=== PATIENT | female | born 1985 | race Hispanic/Latino ===

== ENCOUNTER 2019-12-18 19:23 | Emergency (ER) | payer BC, SELFPAY ==
[2019-12-18] MEDS ORDERED: LABETALOL 20 MG/4ML SYRINGE IV ONE (21:21)
[2019-12-18] MEDS ORDERED: NA CHLORIDE 0.9% 1,000 ML ONE (21:21)
[2019-12-18 21:23] LABS: Absolute Lymphocytes (CBC) 2.2 K/uL (0.7-4.9); Basophils % 0.4 % (0-1.3); Hematocrit 37.2 % (36.0-45.0); Lymphocytes % 37.1 % (15.3-44.8); MPV 7.5 fL (7.6-11.3); RBC Red Blood Cell Count 4.41 M/uL (3.86-4.86)
[2019-12-18 21:38] LABS: BUN Blood Urea Nitrogen 9 mg/dL (7-18); Bicarbonate 26 mmol/L (21-32); Glucose Level 88 mg/dL (74-106); Potassium 4.1 mmol/L (3.5-5.1); Sodium Level 139 mmol/L (136-145)
--- NOTE | 2019-12-18 22:17 | ER ---
Nurse's Notes [facility] Name: Jeanine Kamara Age: 34 yrs Sex: Female : 1985 Arrival Date: 12/18/2019 Time: 19:26 Bed 13 Private MD: Diagnosis: Uncontrolled hypertension Presentation: 12/17 19:37 Chief complaint: Patient states: High blood pressure for 3 days. Spironolactone taking ll1 as prescribed, clonidine helps for 1 hour, then BP goes back up. Reports AUGUSTE, no appetite, not feeling well, frequent thirst/urination when BP is high. BP 164/120 at home. Has BP log with her. Coronavirus screen: Patient denies a cough. Patient denies shortness of breath or difficulty breathing. Patient denies measured and/or subjective temperature greater than 100.4F prior to today's visit. Patient denies travel on a cruise ship or to a country the [facility] currently lists as an affected area. Patient denies contact with known and/or suspected case of COVID-19. Proceed with normal triage. Ebola Screen: Patient denies travel to an Ebola-affected area in the 21 days before illness onset. Initial Sepsis Screen: Does the patient meet any 2 criteria? No. Patient's initial sepsis screen is negative. Risk Assessment: Do you want to hurt yourself or someone else? Patient reports no desire to harm self or others. Onset of symptoms was December 16, 2019. 19:37 Method Of Arrival: Ambulatory ll1 19:37 Acuity: SUNG 3 ll1 22:52 Initial Sepsis Screen: Does the patient have a suspected source of infection? No. ks7 Patient's initial sepsis screen is negative. Triage Assessment: 20:45 General: Appears in no apparent distress. Behavior is cooperative, anxious. Pain: ks7 Denies pain. 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 - Social history:: Smoking status: Patient denies any tobacco usage or history of. Patient/guardian denies using alcohol, street drugs, tobacco products. Screenin:46 Abuse screen: Denies threats or abuse. Nutritional screening: No deficits noted. ks7 Tuberculosis screening: No symptoms or risk factors identified. Fall Risk None identified. Assessment: 20:46 General: Appears in no apparent distress. Cardiovascular: Reports lightheadedness, pt ks7 with hx of HTN x 2 years unable to control BP over last few days. pt diastolic > 100, c/o dizziness, AUGUSTE with BP. Vital Signs: 19:37 BP 146 / 104; Pulse 65; Resp 17; Temp 98.4; Pulse Ox 100% ; Pain 4/10; ll1 20:45 BP 151 / 102; Pulse 72; Resp 14; Temp 98.4(O); Pulse Ox 100% ; Pain 0/10; ks7 21:36 BP 150 / 96; Pulse 67; Resp 16; Temp 98.6(O); Pulse Ox 100% ; Pain 4/10; ks7 22:05 BP 146 / 95; Pulse 69; Resp 16; Pulse Ox 100% ; Pain 4/10; ks7 22:43 BP 146 / 95; Pulse 66; Resp 16; Temp 98.6(O); Pulse Ox 100% ; Pain 0/10; ks7 22:53 BP 143 / 95; Pain 0/10; ks7 ED Course: 19:26 Patient arrived in ED. cf2 19:40 Triage completed. ll1 19:42 Arm band placed on. ll1 20:37 Mica Villegas, WON is Primary Nurse. ks7 20:40 Richie Ortiz MD is Attending Physician. pkl 20:46 Patient has correct armband on for positive identification. Placed in gown. Bed in low ks7 position. Call light in reach. Side rails up X2. 20:46 No provider procedures requiring assistance completed. ks7 21:15 Initial lab(s) drawn, by me, sent to lab. Inserted saline lock: 20 gauge in right sg antecubital area, using aseptic technique. Blood collected. 21:24 Chem 7 Sent. ks7 22:50 IV discontinued, intact, bleeding controlled, No redness/swelling at site. Pressure ks7 dressing applied. Administered Medications: Discontinued: NS 0.9% 1000 ml IV at 125 ml/hr continuous 21:20 Drug: NS 0.9% 1000 ml Route: IV; Rate: 125 ml/hr; Site: right antecubital; ks7 21:20 Drug: Labetalol 20 mg Route: IVP; Infused Over: 2 mins; Site: right antecubital; ks7 22:53 Follow up: BP 143 / 95; Pain 0/10 Adult ks7 Outcome: 22:16 Discharge ordered by . jackson 22:50 Discharged to home ambulatory. ks7 22:50 Condition: stable 22:50 Discharge instructions given to patient, Instructed on discharge instructions, medication usage, Demonstrated understanding of instructions, medications, Prescriptions given X 1. 22:53 Patient left the ED. ks7 Signatures: Eugenio Huff RN WON sg Richie Ortiz MD MD pkl Frazier, Celesta cf2 Emily Razo RN RN ll1 Mica Villegas RN RN ks7
--- NOTE | 2019-12-18 22:17 | EDPHYS ---
Physician Documentation [facility] Name: Jeanine Kamara Age: 34 yrs Sex: Female : 1985 Arrival Date: 12/18/2019 Time: 19:26 Bed 13 Private MD: ED Physician Richie Ortiz HPI: 12/17 21:05 This 34 yrs old Female presents to ER via Ambulatory with complaints of High pkl Blood Pressure. 21:05 Onset: The symptoms/episode began/occurred 3 day(s) ago. Associated signs and symptoms: pkl Pertinent positives: headache, frequent thirst and urination. 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 - Social history:: Smoking status: Patient denies any tobacco usage or history of. Patient/guardian denies using alcohol, street drugs, tobacco products. ROS: 21:05 Eyes: Negative for injury, pain, redness, and discharge, ENT: Negative for injury, pkl pain, and discharge, Neck: Negative for injury, pain, and swelling, Cardiovascular: Negative for chest pain, palpitations, and edema, Respiratory: Negative for shortness of breath, cough, wheezing, and pleuritic chest pain, Abdomen/GI: Negative for abdominal pain, nausea, vomiting, diarrhea, and constipation, Back: Negative for injury and pain, : Negative for injury, bleeding, discharge, and swelling, MS/Extremity: Negative for injury and deformity, Skin: Negative for injury, rash, and discoloration. 21:05 Neuro: Positive for headache. Exam: 21:05 Head/Face: Normocephalic, atraumatic. Eyes: Pupils equal round and reactive to light, pkl extra-ocular motions intact. Lids and lashes normal. Conjunctiva and sclera are non-icteric and not injected. Cornea within normal limits. Periorbital areas with no swelling, redness, or edema. ENT: Nares patent. No nasal discharge, no septal abnormalities noted. Tympanic membranes are normal and external auditory canals are clear. Oropharynx with no redness, swelling, or masses, exudates, or evidence of obstruction, uvula midline. Mucous membranes moist. Neck: Trachea midline, no thyromegaly or masses palpated, and no cervical lymphadenopathy. Supple, full range of motion without nuchal rigidity, or vertebral point tenderness. No Meningismus. Chest/axilla: Normal chest wall appearance and motion. Nontender with no deformity. No lesions are appreciated. Cardiovascular: Regular rate and rhythm with a normal S1 and S2. No gallops, murmurs, or rubs. Normal PMI, no JVD. No pulse deficits. Respiratory: Lungs have equal breath sounds bilaterally, clear to auscultation and percussion. No rales, rhonchi or wheezes noted. No increased work of breathing, no retractions or nasal flaring. Abdomen/GI: Soft, non-tender, with normal bowel sounds. No distension or tympany. No guarding or rebound. No evidence of tenderness throughout. Back: No spinal tenderness. No costovertebral tenderness. Full range of motion. Skin: Warm, dry with normal turgor. Normal color with no rashes, no lesions, and no evidence of cellulitis. MS/ Extremity: Pulses equal, no cyanosis. Neurovascular intact. Full, normal range of motion. Neuro: Awake and alert, GCS 15, oriented to person, place, time, and situation. Cranial nerves II-XII grossly intact. Motor strength 5/5 in all extremities. Sensory grossly intact. Cerebellar exam normal. Normal gait. Vital Signs: 19:37 BP 146 / 104; Pulse 65; Resp 17; Temp 98.4; Pulse Ox 100% ; Pain 4/10; ll1 20:45 BP 151 / 102; Pulse 72; Resp 14; Temp 98.4(O); Pulse Ox 100% ; Pain 0/10; ks7 21:36 BP 150 / 96; Pulse 67; Resp 16; Temp 98.6(O); Pulse Ox 100% ; Pain 4/10; ks7 22:05 BP 146 / 95; Pulse 69; Resp 16; Pulse Ox 100% ; Pain 4/10; ks7 22:43 BP 146 / 95; Pulse 66; Resp 16; Temp 98.6(O); Pulse Ox 100% ; Pain 0/10; ks7 22:53 BP 143 / 95; Pain 0/10; ks7 MDM: 20:40 Patient medically screened. pkl 22:15 Data reviewed: vital signs, nurses notes, lab test result(s). pkl 12/17 20:50 Order name: CBC with Diff; Complete Time: 22:13 pkl 12/17 20:50 Order name: Chem 7; Complete Time: 22:13 pkl Administered Medications: Discontinued: NS 0.9% 1000 ml IV at 125 ml/hr continuous 21:20 Drug: NS 0.9% 1000 ml Route: IV; Rate: 125 ml/hr; Site: right antecubital; ks7 21:20 Drug: Labetalol 20 mg Route: IVP; Infused Over: 2 mins; Site: right antecubital; ks7 22:53 Follow up: BP 143 / 95; Pain 0/10 Adult ks7 Disposition: 12/18/19 22:16 Discharged to Home. Impression: Uncontrolled hypertension. - Condition is Stable. - Prescriptions for Carvedilol 12.5 mg Oral Tablet - take 1 tablet by ORAL route 2 times per day with food; 60 tablet. - Medication Reconciliation Form, Thank You Letter, Antibiotic Education, Prescription Opioid Use form. - Follow up: Private Physician; When: 2 - 3 days; Reason: Re-evaluation by your physician. - Problem is new. - Symptoms have improved. Signatures: Dispatcher [employer] EDRichie Mcduffie MD MD pkEmily Zuñiga RN RN ll1 Mica Villegas RN RN ks7 Corrections: (The following items were deleted from the chart) 22:53 22:16 12/18/2019 22:16 Discharged to Home. Impression: Uncontrolled hypertension. ks7 Condition is Stable. Forms are Medication Reconciliation Form, Thank You Letter, Antibiotic Education, Prescription Opioid Use. Follow up: Private Physician; When: 2 - 3 days; Reason: Re-evaluation by your physician. Problem is new. Symptoms have improved. pkl
[2019-12-18 23:13] VITALS: O2SAT 100
[2019-12-18 23:16] VITALS: TEMP 98.6
[2019-12-18 23:20] VITALS: BP 143/95
== END 2019-12-18 22:53 | disposition home or self-care (01) ==
LOC: ER 19:23
DX: I10 Essential (primary) hypertension (principal)
CPT/HCPCS: 36415; 80048; 85025; 96374; 99284; J7030

== ENCOUNTER 2019-12-19 22:58 | Emergency (ER) | payer SELFPAY ==
--- NOTE | 2019-12-20 00:25 | ER ---
Nurse's Notes [facility] Name: Jeanine Kamara Age: 34 yrs Sex: Female : 1985 Arrival Date: 12/19/2019 Time: 23:00 Bed Waiting Private MD: Diagnosis: Presentation: 12/18 23:05 Chief complaint: Patient states: BP has still been elevated since visit here yesterday. ll1 Also went to [place] ER last night. Blood work negative. Coronavirus screen: Patient denies a cough. Patient denies shortness of breath or difficulty breathing. Patient denies measured and/or subjective temperature greater than 100.4F prior to today's visit. Patient denies travel on a cruise ship or to a country the [facility] currently lists as an affected area. Patient denies contact with known and/or suspected case of COVID-19. Proceed with normal triage. Ebola Screen: Patient denies travel to an Ebola-affected area in the 21 days before illness onset. Initial Sepsis Screen: Does the patient meet any 2 criteria? No. Patient's initial sepsis screen is negative. Risk Assessment: Do you want to hurt yourself or someone else? Patient reports no desire to harm self or others. Onset of symptoms was December 15, 2019. 23:05 Method Of Arrival: Ambulatory ll1 23:05 Acuity: SUNG 3 ll1 Historical: - Allergies: 23:07 No Known Drug Allergies; ll1 - PMHx: 23:07 high cholesterol in the past; Hypertension; GERD; Diverticulitis; ll1 - PSHx: 23:07 None; ll1 - Immunization history:: Adult Immunizations up to date. - Social history:: Smoking status: Patient denies any tobacco usage or history of. Patient/guardian denies using alcohol, street drugs, tobacco products. Vital Signs: 23:05 BP 156 / 109; Pulse 64; Resp 17; Temp 99.2; Pulse Ox 100% ; Pain 5/10; ll1 ED Course: 23:00 Patient arrived in ED. do 23:07 Triage completed. ll1 23:08 Arm band placed on Patient notified of wait time. ll1 12/19 00:00 Patient's name was called from ER lobby. No response. sg 00:15 Patient's name was called from ER lobby. No response. sg 00:23 Patient's name was called from ER pamela. No response. sg Administered Medications: No medications were administered Outcome: 00:24 Patient left the ED. sg Signatures: Eugenio Huff RN RN Alyse Gonzales Lynsay RN RN ll1
[2019-12-20 00:44] VITALS: BP 156/109; TEMP 99.2; O2SAT 100
== END 2019-12-20 00:24 | disposition left against medical advice (07) ==
LOC: ER 22:58
DX: Z53.21 Procedure and treatment not carried out due to patient leaving prior to being seen by health care provider (principal)
CPT/HCPCS: 99281

== ENCOUNTER 2019-12-20 23:13 | Emergency (ER) | payer SELFPAY ==
[2019-12-20] MEDS ORDERED: ACETAMINOPHEN 500 MG TAB ONE (23:59)
[2019-12-21 00:09] LABS: Absolute Lymphocytes (CBC) 2.4 K/uL (0.7-4.9); Basophils % 0.6 % (0-1.3); Hematocrit 38.4 % (36.0-45.0); Lymphocytes % 33.5 % (15.3-44.8); MPV 8.3 fL (7.6-11.3); RBC Red Blood Cell Count 4.49 M/uL (3.86-4.86)
[2019-12-21 00:21] LABS: ALT/SGPT 17 U/L (12-78); AST/SGOT 14 U/L (15-37); Albumin 3.7 g/dL (3.4-5.0); Alkaline Phosphatase 61 U/L (45-117); BUN Blood Urea Nitrogen 7 mg/dL (7-18); Bicarbonate 23 mmol/L (21-32); Bilirubin Direct < 0.1 mg/dL (0-0.2); Bilirubin Total 0.3 mg/dL (0.2-1.0); Creatine Phosphokinase 56 U/L (26-192); Glucose Level 92 mg/dL (74-106); Magnesium 2.1 mg/dL (1.8-2.4); NT PRO-BNP 73 pg/mL (<125); Potassium 4.1 mmol/L (3.5-5.1); Protein, Total 7.9 g/dL (6.4-8.2); Sodium Level 138 mmol/L (136-145); Troponin (Emerg Dept Use Only) < 0.02 ng/mL (0.0-0.045)
[2019-12-21 01:25] LABS: METHAMPHETAM NEGATIVE (NEGATIVE)
[2019-12-21 01:26] LABS: Barbiturates NEGATIVE (NEGATIVE); Benzodiazepines NEGATIVE (NEGATIVE); Cocaine NEGATIVE (NEGATIVE); Methadone NEGATIVE (NEGATIVE); Opiates NEGATIVE (NEGATIVE); Phencyclidine NEGATIVE (NEGATIVE)
[2019-12-21 01:27] LABS: THC Cannibis NEGATIVE (NEGATIVE)
[2019-12-21] MEDS ORDERED: NA CHLORIDE 0.9% 1,000 ML ONE (01:28)
[2019-12-21] MEDS ORDERED: DIPHENHYDRAMINE 50 MG/ML VIAL ONE (01:28)
[2019-12-21] MEDS ORDERED: METOCLOPRAMIDE 10 MG/2mL INJ ONE (01:28)
[2019-12-21 02:17] LABS: Urine Blood 3+ (NEG); Urine Glucose NEGATIVE (NEG); Urine Protein NEGATIVE (NEG); Urine Specific Gravity 1.025 (1.005-1.030)
[2019-12-21 03:41] LABS: Protime INR 1.07
--- NOTE | 2019-12-21 03:48 | EDPHYS ---
Physician Documentation [facility] Name: Jeanine Kamara Age: 34 yrs Sex: Female : 1985 Arrival Date: 12/20/2019 Time: 23:18 Bed 7 Private MD: ED Physician Sergey Hardy HPI: 12/19 23:55 This 34 yrs old Female presents to ER via EMS with complaints of Hypertension..mh7 23:56 The patient has elevated blood pressure and discovered this at home, with a home mh7 device. Onset: The symptoms/episode began/occurred 3 day(s) ago. Modifying factors: The symptoms are aggravated by nothing, The symptoms are alleviated by nothing. Associated signs and symptoms: Pertinent positives: chest pain, headache, Pertinent negatives: dizziness, dyspnea, lightheadedness, nausea, visual changes, vomiting, weakness. Severity of symptoms: At its worst the blood pressure was moderate, earlier today, 200 mm Hg, in the emergency department the blood pressure is improved, moderately, 160 mm Hg. The patient has been recently seen at the [facility], this week. 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 - Social history:: Smoking status: Patient denies any tobacco usage or history of. ROS: 23:56 Constitutional: Negative for fever, chills, and weight loss, Eyes: Negative for injury, mh7 pain, redness, and discharge, ENT: Negative for injury, pain, and discharge, Neck: Negative for injury, pain, and swelling, Respiratory: Negative for shortness of breath, cough, wheezing, and pleuritic chest pain, Abdomen/GI: Negative for abdominal pain, nausea, vomiting, diarrhea, and constipation, Back: Negative for injury and pain, : Negative for injury, bleeding, discharge, and swelling, MS/Extremity: Negative for injury and deformity, Skin: Negative for injury, rash, and discoloration, Psych: Negative for depression, anxiety, suicide ideation, homicidal ideation, and hallucinations, Allergy/Immunology: Negative for hives, rash, and allergies, Endocrine: Negative for neck swelling, polydipsia, polyuria, polyphagia, and marked weight changes, Hematologic/Lymphatic: Negative for swollen nodes, abnormal bleeding, and unusual bruising. Exam: 23:56 Constitutional: This is a well developed, well nourished patient who is awake, alert, mh7 and in no acute distress. Head/Face: Normocephalic, atraumatic. Eyes: Pupils equal round and reactive to light, extra-ocular motions intact. Lids and lashes normal. Conjunctiva and sclera are non-icteric and not injected. Cornea within normal limits. Periorbital areas with no swelling, redness, or edema. ENT: Nares patent. No nasal discharge, no septal abnormalities noted. Tympanic membranes are normal and external auditory canals are clear. Oropharynx with no redness, swelling, or masses, exudates, or evidence of obstruction, uvula midline. Mucous membranes moist. Neck: Trachea midline, no thyromegaly or masses palpated, and no cervical lymphadenopathy. Supple, full range of motion without nuchal rigidity, or vertebral point tenderness. No Meningismus. Chest/axilla: Normal chest wall appearance and motion. Nontender with no deformity. No lesions are appreciated. Cardiovascular: Regular rate and rhythm with a normal S1 and S2. No gallops, murmurs, or rubs. Normal PMI, no JVD. No pulse deficits. Respiratory: Lungs have equal breath sounds bilaterally, clear to auscultation and percussion. No rales, rhonchi or wheezes noted. No increased work of breathing, no retractions or nasal flaring. Abdomen/GI: Soft, non-tender, with normal bowel sounds. No distension or tympany. No guarding or rebound. No evidence of tenderness throughout. Back: No spinal tenderness. No costovertebral tenderness. Full range of motion. Skin: Warm, dry with normal turgor. Normal color with no rashes, no lesions, and no evidence of cellulitis. MS/ Extremity: Pulses equal, no cyanosis. Neurovascular intact. Full, normal range of motion. Neuro: Awake and alert, GCS 15, oriented to person, place, time, and situation. Cranial nerves II-XII grossly intact. Motor strength 5/5 in all extremities. Sensory grossly intact. Cerebellar exam normal. Normal gait. Psych: Awake, alert, with orientation to person, place and time. Behavior, mood, and affect are within normal limits. 23:56 Constitutional: The patient appears 12/20 00:12 ECG was reviewed by the Attending Physician. [facility] Vital Signs: 12/19 23:18 BP 169 / 117; Pulse 70; Resp 17; Temp 98.5; Pulse Ox 99% on R/A; Weight 60.33 kg; rv Height 5 ft. 3 in. (160.02 cm); Pain 10; 12/20 00:30 BP 154 / 101; Pulse 57; Resp 18; Pulse Ox 100% on R/A; wh 01:45 BP 148 / 95; Pulse 65; Resp 18; Pulse Ox 100% on R/A; wh 02:28 BP 140 / 94; Pulse 64; Resp 17; Pulse Ox 100% on R/A; rv 03:00 BP 125 / 85; Pulse 63; Resp 16; Pulse Ox 100% on R/A; rv 12/19 23:18 Body Mass Index 23.56 (60.33 kg, 160.02 cm) rv MDM: 12/19 23:43 Patient medically screened. [facility] 12/20 03:44 Differential diagnosis: hypertensive crisis, Malignant HTN, intracerebral hemorrhage. [facility] Differential diagnosis: Anxiety, Headache, Substance Abuse, Dehydration. Data reviewed: vital signs, nurses notes, EMS record, old medical records, lab test result(s), cardiac enzymes, CBC, electrolytes, urinalysis, urine drug screen, UPT: EKG, radiologic studies, CT scan, plain films. Data interpreted: youth nutritional monitor: rate is 63 beats/min, rhythm is normal sinus rhythm, regular, Interpretation: normal rate, normal rhythm, Pulse oximetry: on room air is 100 %. Interpretation: normal. Counseling: I had a detailed discussion with the patient and/or guardian regarding: the historical points, exam findings, and any diagnostic results supporting the discharge/admit diagnosis, the presence of at least one elevated blood pressure reading (>120/80) during this emergency department visit, lab results, radiology results, the need for outpatient follow up, to return to the emergency department if symptoms worsen or persist or if there are any questions or concerns that arise at home. Response to treatment: the patient's symptoms have resolved after treatment, the patient's blood pressure is in an acceptable range, mental status has returned to baseline, the patient no longer shows bradycardia, the patient is not short of breath, the patient is not tachycardic, the patient's pain is gone, the patient's temperature has normalized. 12/19 23:44 Order name: Basic Metabolic Panel; Complete Time: 00:40 [facility] 12/19 23:44 Order name: CBC with Diff; Complete Time: 00:40 [facility] 12/19 23:44 Order name: LFT's; Complete Time: 00:40 [facility] 12/19 23:44 Order name: Magnesium; Complete Time: 00:40 [facility] 12/19 23:44 Order name: NT PRO-BNP; Complete Time: 00:40 [facility] 12/19 23:44 Order name: PT-INR [facility] 12/19 23:44 Order name: Troponin (emerg Dept Use Only); Complete Time: 00:40 [facility] 12/19 23:44 Order name: UDS; Complete Time: 03:06 [facility] 12/19 23:44 Order name: CPK; Complete Time: 00:40 [facility] 12/20 00:16 Order name: Urine Dipstick--Ancillary (enter results); Complete Time: 03:06 [facility] 12/20 00:16 Order name: Urine --Ancillary (enter results); Complete Time: 03:06 [facility] 12/20 02:20 Order name: Troponin (emerg Dept Use Only); Complete Time: 03:42 12/20 02:47 Order name: D-Dimer [facility] 12/19 23:44 Order name: XRAY Chest (1 view) [facility] 12/19 23:44 Order name: Cardiac monitoring; Complete Time: 23:58 [facility] 12/19 23:44 Order name: EKG - Nurse/Tech; Complete Time: 23:55 [facility] 12/19 23:44 Order name: IV Saline Lock; Complete Time: 23:58 [facility] 12/19 23:44 Order name: Labs collected and sent; Complete Time: 23:55 [facility] 12/19 23:44 Order name: O2 Per Protocol; Complete Time: 23:58 [facility] 12/19 23:44 Order name: O2 Sat Monitoring; Complete Time: 23:58 [facility] 12/19 23:44 Order name: Urine Dipstick-Ancillary (obtain specimen); Complete Time: 00:11 [facility] 12/19 23:44 Order name: Urine Test (obtain specimen); Complete Time: 00:10 [facility] 12/19 23:46 Order name: CT Head Brain wo Cont 7 EC:12 Rate is 65 beats/min. Rhythm is regular, Normal Sinus Rhythm. QRS [place] is Normal. [place] mh7 interval is normal. QRS interval is normal. QT interval is normal. No Q waves. T waves are Normal. No ST changes noted. Clinical impression: Normal ECG. Administered Medications: 12/19 23:58 Drug: Tylenol 1000 mg Route: PO; 12/20 03:45 Follow up: Response: No adverse reaction rv 01:25 Drug: Benadryl 50 mg Route: IVP; Site: left antecubital; rv 03:45 Follow up: Response: No adverse reaction; Marked relief of symptoms; Pain is decreased rv 01:26 Drug: NS 0.9% 1000 ml Route: IV; Rate: 1 bolus; Site: left antecubital; rv 03:45 Follow up: IV Status: Completed infusion; IV Intake: 1000ml rv 01:26 Drug: Reglan 10 mg Route: IVP; Site: left antecubital; rv 03:45 Follow up: Response: No adverse reaction; Marked relief of symptoms; Pain is decreased rv Disposition: 12/21/19 03:48 Discharged to Home. Impression: Hypertension, Headache, Anxiety. - Condition is Stable. - Discharge Instructions: Hypertension, Jzir-[id number], General Headache Without Cause, [id number], Generalized Anxiety Disorder. - Prescriptions for Hydroxyzine HCl 25 mg Oral Tablet - take 1 tablet by ORAL route every 6 hours As needed; 12 tablet. - Medication Reconciliation Form, Thank You Letter, Antibiotic Education, Prescription Opioid Use form. - Follow up: Private Physician; When: 1 - 2 days; Reason: Worsening of condition, Recheck today's complaints, Continuance of care, Re-evaluation by your physician. - Problem is an ongoing problem. - Symptoms have improved. Signatures: Dispatcher [employer] Abhilash Vinson Jimmy Bishop RN RN Sergey Maya MD MD mh7 Corrections: (The following items were deleted from the chart) 02:46 12/19 23:50 D-[id number] [facility]. [facility] 03:48 03:48 12/21/2019 03:48 Discharged to Home. Impression: Hypertension; Headache. mh7 Condition is Stable. Forms are Medication Reconciliation Form, Thank You Letter, Antibiotic Education, Prescription Opioid Use. Follow up: Private Physician; When: 1 - 2 days; Reason: Worsening of condition, Recheck today's complaints, Continuance of care, Re-evaluation by your physician. Problem is an ongoing problem. Symptoms have improved. mh7 04:01 03:48 12/21/2019 03:48 Discharged to Home. Impression: Hypertension; Headache; Anxiety. rv Condition is Stable. Forms are Medication Reconciliation Form, Thank You Letter, Antibiotic Education, Prescription Opioid Use. Follow up: Private Physician; When: 1 - 2 days; Reason: Worsening of condition, Recheck today's complaints, Continuance of care, Re-evaluation by your physician. Problem is an ongoing problem. Symptoms have improved. mh7
--- NOTE | 2019-12-21 03:48 | ER ---
Nurse's Notes [facility] Name: Jeanine Kamara Age: 34 yrs Sex: Female : 1985 Arrival Date: 12/20/2019 Time: 23:18 Bed 7 Private MD: Diagnosis: Hypertension;Headache;Anxiety Presentation: 12/19 23:18 Chief complaint: Patient states: WITH HISTORY OF HYPERTENSION. PT WAS TREATED LAST WEEK rv FOR THE SAME PROBLEM. TAKES CARVITALOL, SPIRONOLACTONE, CLONIDINE. ALSO COMPLAINS OF CHEST PAIN, DESCRIBED PRESSURE. Coronavirus screen: Patient denies a cough. Patient denies shortness of breath or difficulty breathing. Patient denies measured and/or subjective temperature greater than 100.4F prior to today's visit. Patient denies travel on a cruise ship or to a country the [facility] currently lists as an affected area. Patient denies contact with known and/or suspected case of COVID-19. Proceed with normal triage. Ebola Screen: No symptoms or risks identified at this time. Initial Sepsis Screen: Does the patient meet any 2 criteria? No. Patient's initial sepsis screen is negative. Does the patient have a suspected source of infection? No. Patient's initial sepsis screen is negative. Risk Assessment: Do you want to hurt yourself or someone else? Patient reports no desire to harm self or others. Onset of symptoms was December 20, 2019 at 21:00. 23:18 Method Of Arrival: EMS: [facility] rv 23:18 Acuity: SUNG 3 rv Triage Assessment: 23:29 General: Appears uncomfortable, Behavior is calm, cooperative. Pain: Complains of pain rv in chest Pain radiates to left arm Pain currently is 3 out of 10 on a pain scale. Quality of pain is described as pressure, Pain began suddenly. Pain: Complains of pain in HEAD Pain currently is 6 out of 10 on a pain scale. EENT: No signs and/or symptoms were reported regarding the EENT system. Neuro: Level of Consciousness is awake, alert, obeys commands, Oriented to person, place, time, situation, Reports headache. Cardiovascular: Reports chest pain, Patient's skin is warm and dry. Rhythm is sinus rhythm. Respiratory: Airway is patent Respiratory effort is even, unlabored, Breath sounds are clear bilaterally. Derm: Skin is intact. 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 - Social history:: Smoking status: Patient denies any tobacco usage or history of. Screenin:31 Abuse screen: Denies threats or abuse. Denies injuries from another. Nutritional rv screening: No deficits noted. Tuberculosis screening: No symptoms or risk factors identified. Fall Risk None identified. Assessment: 12/20 00:00 General: Appears in no apparent distress. Behavior is calm, cooperative, appropriate wh for age. Pain: Complains of pain in chest Pain does not radiate. Is intermittent. Neuro: Level of Consciousness is awake, alert, obeys commands, Oriented to person, place, time, situation, Appropriate for age Reports headache. Cardiovascular: Heart tones S1 S2 Rhythm is regular. Respiratory: Airway is patent Respiratory effort is even, unlabored, Respiratory pattern is regular, symmetrical, Breath sounds are clear bilaterally. GI: Abdomen is flat, non-distended. : No signs and/or symptoms were reported regarding the genitourinary system. EENT: No signs and/or symptoms were reported regarding the EENT system. Derm: Skin is intact, is healthy with good turgor, Skin is pink, warm \T\ dry. normal. Musculoskeletal: Circulation, motion, and sensation intact. 01:30 Reassessment: Patient appears in no apparent distress at this time. No changes from previously documented assessment. Patient and/or family updated on plan of care and expected duration. Pain level reassessed. Patient is alert, oriented x 3, equal unlabored respirations, skin warm/dry/pink. 02:29 Reassessment: Patient states feeling better. Patient states symptoms have improved. rv General: Behavior is calm, cooperative. Neuro: Level of Consciousness is awake, alert, obeys commands, Oriented to person, place, time, situation. Vital Signs: 12/19 23:18 BP 169 / 117; Pulse 70; Resp 17; Temp 98.5; Pulse Ox 99% on R/A; Weight 60.33 kg; rv Height 5 ft. 3 in. (160.02 cm); Pain 3/10; 12/20 00:30 BP 154 / 101; Pulse 57; Resp 18; Pulse Ox 100% on R/A; wh 01:45 BP 148 / 95; Pulse 65; Resp 18; Pulse Ox 100% on R/A; wh 02:28 BP 140 / 94; Pulse 64; Resp 17; Pulse Ox 100% on R/A; rv 03:00 BP 125 / 85; Pulse 63; Resp 16; Pulse Ox 100% on R/A; rv 12/19 23:18 Body Mass Index 23.56 (60.33 kg, 160.02 cm) rv ED Course: 12/19 23:18 Patient arrived in ED. rv 23:21 Sergey Hardy MD is Attending Physician. [facility] 23:28 Triage completed. rv 23:30 Arm band placed on Patient placed in the treatment room, on a stretcher, Patient rv notified of wait time. 23:30 No provider procedures requiring assistance completed. Maintain EMS IV. Dressing rv intact. Good blood return noted. Site clean \T\ dry. Gauge \T\ site: G 18 LEFT AC. 23:31 Patient has correct armband on for positive identification. Placed in gown. Bed in low rv position. Call light in reach. Side rails up X 1. satellite project site monitor on. Pulse ox on. NIBP on. 23:36 Initial lab(s) drawn, by me, sent to lab. tt3 23:43 Abhilash Oneill is Primary Nurse. 12/20 00:19 XRAY Chest (1 view) In Process Unspecified. EDMS 00:21 CT Head Brain wo Cont In Process Unspecified. EDMS 03:46 IV discontinued, intact, bleeding controlled, No redness/swelling at site. Pressure rv dressing applied. Administered Medications: 12/19 23:58 Drug: Tylenol 1000 mg Route: PO; 12/20 03:45 Follow up: Response: No adverse reaction rv 01:25 Drug: Benadryl 50 mg Route: IVP; Site: left antecubital; rv 03:45 Follow up: Response: No adverse reaction; Marked relief of symptoms; Pain is decreased rv 01:26 Drug: NS 0.9% 1000 ml Route: IV; Rate: 1 bolus; Site: left antecubital; rv 03:45 Follow up: IV Status: Completed infusion; IV Intake: 1000ml rv 01:26 Drug: Reglan 10 mg Route: IVP; Site: left antecubital; rv 03:45 Follow up: Response: No adverse reaction; Marked relief of symptoms; Pain is decreased rv Intake: 03:45 IV: 1000ml; Total: 1000ml. rv Outcome: 03:47 Discharged to home ambulatory. rv 03:47 Condition: good 03:47 Discharge instructions given to patient, Instructed on discharge instructions, follow up and referral plans. Demonstrated understanding of instructions, follow-up care. 03:48 Discharge ordered by MD. torres 03:53 Instructed on medication usage, Demonstrated understanding of medications, rv Prescriptions given X 1. 04:01 Patient left the ED. rv Signatures: Dispatcher [employer] EDMS Abhilash Oneill Ronaldo, RN RN Sergey Maya MD MD [email or web address] Amol, Tony tt3
[2019-12-21 04:06] VITALS: TEMP 98.5
[2019-12-21 04:07] VITALS: O2SAT 100
[2019-12-21 04:11] VITALS: BP 125/85
--- NOTE | 2019-12-21 08:01 | RAD REPORT ---
EXAM DESCRIPTION: Frida Single View12/21/2019 12:20 am CLINICAL HISTORY: Chest pain COMPARISON: 2002 and 2008 FINDINGS: The lungs appear clear of acute infiltrate. The heart is normal size. If the film is labeled correctly the patient has dextrocardia. However on the prior 2 examinations th e heart was in the left aspect of the chest. Most likely the current film is mislabeled.
--- NOTE | 2019-12-21 09:01 | RAD REPORT ---
EXAM DESCRIPTION: CT - Head Brain Wo Cont - 12/21/2019 2:23 am CLINICAL HISTORY: 34 years Female HEADACHE COMPARISON: None TECHNIQUE: Images were obtained in axial, sagittal, and coronal planes. This exam was performed according to our departmental dose-optimization program which includes use of Automated Exposure Control, adjustment of the mA and/or kV according to patient size and/or use o f iterative reconstruction technique. FINDINGS: Ventricular system appears normal. No abnormal areas of increased or decreased attenuation are seen involving the brain parenchyma. No e xtra-axial fluid collections noted. Basal ganglionic calcifications bilaterally likely physiologic in nature. No evidence for skull fracture. Symmetric aeration mastoid air cells bilaterally. Unremarkable parana suzanne sinuses. IMPRESSION: No acute intracranial abnormality. No evidence for hemorrhage, mass lesion, or large acu te infarction. Electronically signed by: Christina Roque MD 12/21/2019 12:26 AM CDT Due to temporary technical issues with the PACS/Fluency reporting system, reports are being signed by the in house radiologist without review as a courtesy to ensure prompt reporting. The interpreting r adiologist is fully responsible for the content of the report.
== END 2019-12-21 04:01 | disposition home or self-care (01) ==
LOC: ER 23:13
DX: I10 Essential (primary) hypertension (principal); F41.9 Anxiety disorder, unspecified
CPT/HCPCS: 36415; 70450; 71045; 80048; 80076; 80307; 81003; 81025; 82550; 83735; 83880; 84484; 85025; 85379; 85610; 96361; 96374; 96375; 99284; J1200; J2765; J7030

== ENCOUNTER 2020-11-02 00:03 | Emergency (ER) | payer SELFPAY ==
--- OUTSIDE RECORDS SUMMARY | 2020-11-02 00:06 | XMS REPORT | Continuity of Care Document ---
:1985 Author Organization [facility] t Address [address] [place] [address] Care Team Providers Name Role Phone Rodger DNEICE, R Attending Clinician Unavailable Doctor Unassigned, Name Attending Clinician Unavailable Eloy BLACK, F Attending Clinician Gino ANDREWSP, N Attending Clinician Problems This patient has no known problems. Allergies, Adverse Reactions, Alerts This patient has no known allergies or adverse reactions. Medications This patient has no known medications. Procedures This patient has no known procedures. Encounters Start End Encounter Admission Attending Care Care Encounter Source Date/Time Date/Time Type Type Clinicians Facility Department ID 2020-10-20 2020-10-20 Case Lexis Soares [id number] 00:00:00 00:00:00 Management Pallavi Maharaj [id number] [place] [id number] 2020-10-10 2020-10-10 Orders Doctor RIOS [id number] 00:00:00 00:00:00 Only UnassignedMIRELLA [id number] [place] [facility] [id number] 2020-09-24 2020-09-24 Emergency MICHELLE Lyons [id number] 19:03:00 21:34:00 Deonte Morgan [id number] [place] [id number] [place] [id number] 2020-09-22 2020-09-22 Office MICHELLE Christian [id number] 14:51:22 15:43:34 Visit Gayatri Shaw PILOT SUBMERSIBLE [id number] [facility] [id number] MATERNAL [id number] & CHILD [address] [place] [address] - [place] Results This patient has no known results.
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
[2020-11-02 05:18] VITALS: BP 147/94; TEMP 97.5; O2SAT 95
--- NOTE | 2020-11-02 11:26 | RAD REPORT ---
EXAM DESCRIPTION: CT Maxillofacial Without Intravenous Contrast CLINICAL HISTORY: The patient is 34 years old and is Female; nose injury;Facial pain TECHNIQUE: Axial computed tomography images of the face without intravenous contrast. Sagittal and coronal reformatted images were created and reviewed. This CT exam was performed using one or more of the following dose reduction techniques: automated exposure control, adjustment of the mA and/o r kV according to patient size, and/or use of iterative reconstruction technique. COMPARISON: No relevant prior studies available. FINDINGS: Bones/joints: No acute fracture. Soft tissues: Unremarkable. Orbits: Unremarkable. Sinuses: Unremarkable. No air-fluid levels. IMPRESSION: No acute fracture. Electronically signed by: Hayder Martin MD 11/02/2020 3:53 AM CDT Due to temporary technical issues with the PACS/Fluency reporting system, reports are being signed by the in house radiologist without review as a courtesy to ensure prompt reporting. The interpreting r adiologist is fully responsible for the content of the report.
== END 2020-11-02 05:12 | disposition home or self-care (01) ==
LOC: ER 00:03
DX: S00.33XA Contusion of nose, initial encounter (principal); I10 Essential (primary) hypertension; K21.9 Gastro-esophageal reflux disease without esophagitis
CPT/HCPCS: 70486; 76377; 99283

== ENCOUNTER 2020-11-06 14:42 | Emergency (ER) | payer SELFPAY ==
--- OUTSIDE RECORDS SUMMARY | 2020-11-06 14:45 | XMS REPORT | Continuity of Care Document ---
:1985 Author Organization [facility] t Address [address] [place] [address] Care Team Providers Name Role Phone Rodger DENICE, R Attending Clinician Unavailable Doctor Unassigned, Name [...] ID 2020-10-20 2020-10-20 Case Lexis Soares [id number] 00:00:00 00:00:00 Management Pallavi Maharaj [id number] [place] [id number] 2020-10-10 2020-10-10 Orders Doctor RIOS [id number] 00:00:00 00:00:00 Only UnassignedMIRELLA [id number] [place] [facility] [id number] 2020-09-24 2020-09-24 Emergency MICHELLE Lyons [id number] 19:03:00 21:34:00 Deonte Morgan [id number] [place] [id number] [place] [id number] 2020-09-22 2020-09-22 Office MICHELLE Christian [id number] 14:51:22 15:43:34 Visit Gayatri Shaw FAMILY DEVELOPMENT SPECIALIST [id number] [facility] [id number] MATERNAL [phone] & CHILD [address] [place] [address] - NAZARETH Results This patient has no known results.
[2020-11-06] MEDS ORDERED: ONDANSETRON 4 MG/2 ML VIAL ONE (15:46)
[2020-11-06] MEDS ORDERED: MORPHINE 2 MG/ML SYR ONE (15:46)
[2020-11-06 15:48] LABS: Urine Blood Negative (Negative); Urine Glucose Negative (Negative); Urine Protein Negative (Negative); Urine Specific Gravity 1.015 (1.005-1.030); Urine pH 7.5 (5.0-7.0)
[2020-11-06 16:05] LABS: Basophils % 0.4 % (0-1.3); Hematocrit 38.5 % (36.0-45.0); Lymphocytes % 39.2 % (15.3-44.8); MPV 7.7 fL (7.6-11.3); RBC Red Blood Cell Count 4.45 M/uL (3.86-4.86)
[2020-11-06 16:19] LABS: ALT/SGPT 21 U/L (12-78); AST/SGOT 13 U/L (15-37); Albumin 3.6 g/dL (3.4-5.0); Alkaline Phosphatase 72 U/L (45-117); BUN Blood Urea Nitrogen 7 mg/dL (7-18); Bicarbonate 28 mmol/L (21-32); Bilirubin Direct < 0.1 mg/dL (0-0.2); Bilirubin Total 0.2 mg/dL (0.2-1.0); Glucose Level 81 mg/dL (74-106); Lipase 133 U/L (73-393); Protein, Total 7.6 g/dL (6.4-8.2); Sodium Level 140 mmol/L (136-145)
[2020-11-06 16:25] LABS: Urine Specific Gravity/Preg 1.015 (1.005-1.030)
--- NOTE | 2020-11-06 16:56 | RAD REPORT ---
EXAM DESCRIPTION: CT - Abdomen Pelvis W Contrast - 11/06/2020 4:42 pm CLINICAL HISTORY: Abdominal pain COMPARISON: none. TECHNIQUE: Computed axial tomography of the abdomen pelvis was obtained. 100 cc Isovue-300 was admin istered intravenously. Oral contrast was not requested which limits evaluation of bowel. All CT scans are performed using dose optimization technique as appropriate and may include automated exposure control or mA/KV adjustment according to patient size. FINDINGS: The liver, spleen, pancreas, adrenal and kidneys appear unremarkable. There is no evidence of diverticulitis. Normal appendix. A 2 centimeter left ovarian cyst without significant free fluid. Retroverted uterus IMPRESSION: A 2 centimeter left ovarian cyst without significant free fluid
--- NOTE | 2020-11-06 19:34 | ER ---
Nurse's Notes [facility] Name: Jeanine Andino Age: 34 yrs Sex: Female : 1985 Arrival Date: 11/06/2020 Time: 14:43 Bed 14 [facility] MD: Diagnosis: Other abdominal pain Presentation: 11/06 14:48 Chief complaint: Patient states: upper abd pain that began 1 week ago. Pt reports aa5 nausea with the pain, denies vomiting/denies diarrhea. Coronavirus screen: At this time, the client does not indicate any symptoms associated with coronavirus-19. Ebola Screen: Patient negative for fever greater than or equal to 101.5 degrees Fahrenheit, and additional compatible Ebola Virus Disease symptoms. Initial Sepsis Screen: Does the patient meet any 2 criteria? No. Patient's initial sepsis screen is negative. Does the patient have a suspected source of infection? No. Patient's initial sepsis screen is negative. Risk Assessment: Do you want to hurt yourself or someone else? Patient reports no desire to harm self or others. Onset of symptoms was November 2020. 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 - Social history:: Smoking status: Patient denies any tobacco usage or history of. Screenin:52 Abuse screen: Denies threats or abuse. Nutritional screening: No deficits noted. vg1 Tuberculosis screening: No symptoms or risk factors identified. Fall Risk No fall in past 12 months (0 pts). No secondary diagnosis (0 pts). IV access (20 points). Ambulatory Aid- None/Bed Rest/Nurse Assist (0 pts). Gait- Normal/Bed Rest/Wheelchair (0 pts) Mental Status- Oriented to own ability (0 pts). Total Adams Fall Scale indicates No Risk (0-24 pts). Assessment: 15:25 General: Appears in no apparent distress. comfortable, Behavior is calm, cooperative. vg1 Pain: Denies pain. Complains of pain in left upper quadrant Pain currently is 0 out of 10 on a pain scale. Pain began about a week ago Is intermittent. Neuro: Level of Consciousness is awake, alert, obeys commands, Oriented to person, place, time, situation. Cardiovascular: Patient's skin is warm and dry. Respiratory: Airway is patent Respiratory effort is even, unlabored. GI: Bowel sounds present X 4 quads. Abd is soft and non tender X 4 quads. Patient currently denies diarrhea, nausea, vomiting, Pt states BM today was thin and brown; pt stated 'not normal' BM. : No signs and/or symptoms were reported regarding the genitourinary system. EENT: No signs and/or symptoms were reported regarding the EENT system. Derm: Skin is intact, is healthy with good turgor. Musculoskeletal: Circulation, motion, and sensation intact. 17:02 Reassessment: Patient appears in no apparent distress at this time. No changes from vg1 previously documented assessment. Patient and/or family updated on plan of care and expected duration. Pain level reassessed. Patient is alert, oriented x 3, equal unlabored respirations, skin warm/dry/pink. 19:16 Reassessment: Patient appears in no apparent distress at this time. Patient and/or vg1 family updated on plan of care and expected duration. Pain level reassessed. Patient is alert, oriented x 3, equal unlabored respirations, skin warm/dry/pink. US at bedside. Vital Signs: 14:48 BP 131 / 83; Pulse 68; Resp 18 S; Temp 98.7(TE); Pulse Ox 99% on R/A; Weight 56.52 kg aa5 (R); Height 5 ft. 3 in. (160.02 cm) (R); Pain 8/10; 15:28 BP 124 / 83; Pulse 63; Resp 16; Pulse Ox 99% ; vg1 17:03 BP 124 / 94; Pulse 67; Resp 14; Pulse Ox 100% on R/A; vg1 19:17 BP 114 / 78; Pulse 67; Resp 16; Pulse Ox 100% on R/A; vg1 14:48 Body Mass Index 22.07 (56.52 kg, 160.02 cm) aa5 ED Course: 14:43 Patient arrived in ED. ds1 14:47 Arm band placed on. aa5 14:50 Triage completed. aa5 14:51 Ulises Romero PA is PHCP. jmm 14:52 Clif Lee MD is Attending Physician. jmm 15:23 Mimi Vitale, RN is Primary Nurse. vg1 15:39 Initial lab(s) drawn, by me, sent to lab. Inserted saline lock: 20 gauge in right vg1 antecubital area, using aseptic technique. Blood collected. 15:52 Patient has correct armband on for positive identification. Placed in gown. Bed in low vg1 position. Call light in reach. Side rails up X 1. 16:42 CT Abd/Pelvis - IV Contrast Only In Process Unspecified. EDMS 19:33 Douglas Bentley MD is Referral Physician. jmm 19:50 US Abdomen Limited In Process Unspecified. EDMS 20:18 No provider procedures requiring assistance completed. IV discontinued, intact, vg1 bleeding controlled, No redness/swelling at site. Pressure dressing applied. Administered Medications: 15:48 Not Given (Patient Refused): Zofran (Ondansetron) 4 mg IVP once; over 2 minutes vg1 15:48 Not Given (Patient Refused): morphine 2 mg IVP once; RASS on ADMIN: Combtv4, Very vg1 Agttd3, Agttd2, Rstlss1, AlertClm0, Drwsy-1, Lt Sdtn-2, Mod Sdtn-3, Dp Sdtn-4, UnArsble-5 Outcome: 19:34 Discharge ordered by . jmm 20:18 Discharged to home ambulatory. vg1 20:18 Condition: stable 20:18 Discharge instructions given to patient, Instructed on discharge instructions, follow up and referral plans. medication usage, Demonstrated understanding of instructions, follow-up care, medications, Prescriptions given X 3. 20:18 Patient left the ED. vg1 Signatures: Dispatcher [employer] EDMS Ulises Romero PA PA jmm Sanford, Demi ds1 Brigitte Baker, RN RN aa5 Mimi Vitale, RN RN vg1
--- NOTE | 2020-11-06 19:34 | EDPHYS ---
Physician Documentation [facility] Name: Jeanine Andino Age: 34 yrs Sex: Female : 1985 Arrival Date: 11/06/2020 Time: 14:43 Bed 14 Private MD: MARLEE Physician Clif Lee HPI: 11/06 15:02 This 34 yrs old Female presents to ER via Ambulatory with complaints of m Abdominal Pain. 15:02 The patient presents with abdominal pain. Onset: The symptoms/episode began/occurred jmm gradually, 1 week(s) ago. The symptoms do not radiate. Associated signs and symptoms: Pertinent positives: nausea, Pertinent negatives: diarrhea, fever, vomiting. The symptoms are described as achy, sharp. Modifying factors: The symptoms are alleviated by nothing, the symptoms are aggravated by nothing. The patient has not experienced similar symptoms in the past. 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 - Social history:: Smoking status: Patient denies any tobacco usage or history of. ROS: 15:02 Constitutional: Negative for fever, chills, and weight loss, Cardiovascular: Negative jmm for chest pain, palpitations, and edema, Respiratory: Negative for shortness of breath, cough, wheezing, and pleuritic chest pain. 15:02 Abdomen/GI: Positive for abdominal pain, nausea. 15:02 All other systems are negative. Exam: 15:02 Constitutional: This is a well developed, well nourished patient who is awake, alert, jmm and in no acute distress. Head/Face: atraumatic. Eyes: EOMI, no conjunctival erythema appreciated ENT: Moist Mucus Membranes Neck: Trachea midline, Supple Chest/axilla: Normal chest wall appearance and motion. Cardiovascular: Regular rate and rhythm. No edema appreciated Respiratory: Normal respirations, no respiratory distress appreciated 15:02 Back: Normal ROM Skin: General appearance color normal MS/ Extremity: Moves all extremities, no obvious deformities appreciated, no edema noted to the lower extremities Neuro: Awake and alert, normal gait Psych: Behavior is normal, Mood is normal, Patient is cooperative and pleasant 15:02 Abdomen/GI: Inspection: abdomen appears normal, Bowel sounds: normal, Palpation: soft, mild abdominal tenderness, in the epigastric area, right upper quadrant and left upper quadrant. Vital Signs: 14:48 BP 131 / 83; Pulse 68; Resp 18 S; Temp 98.7(TE); Pulse Ox 99% on R/A; Weight 56.52 kg aa5 (R); Height 5 ft. 3 in. (160.02 cm) (R); Pain 8/10; 15:28 BP 124 / 83; Pulse 63; Resp 16; Pulse Ox 99% ; vg1 17:03 BP 124 / 94; Pulse 67; Resp 14; Pulse Ox 100% on R/A; vg1 19:17 BP 114 / 78; Pulse 67; Resp 16; Pulse Ox 100% on R/A; vg1 14:48 Body Mass Index 22.07 (56.52 kg, 160.02 cm) aa5 MDM: 14:54 Patient medically screened. rula 19:33 Data reviewed: vital signs, nurses notes. Counseling: I had a detailed discussion with denita the patient and/or guardian regarding: the historical points, exam findings, and any diagnostic results supporting the discharge/admit diagnosis, lab results, radiology results, the need for outpatient follow up, to return to the emergency department if symptoms worsen or persist or if there are any questions or concerns that arise at home. ED course: Imaging studies negative. Patient advised to follow up with GI for further evaluation. patient understood and agrees with the plan of care. . 11/06 14:52 Order name: Basic Metabolic Panel; Complete Time: 16:20 [facility] 11/06 14:52 Order name: CBC with Diff; Complete Time: 16:11 [facility] 11/06 14:52 Order name: Hepatic Function; Complete Time: 16:20 [facility] 11/06 14:52 Order name: Lipase; Complete Time: 16:20 [facility] 11/06 15:48 Order name: Urine Dipstick-Ancillary; Complete Time: 15:55 [facility] 11/06 15:52 Order name: Urine --Ancillary (enter results); Complete Time: 16:26 11/06 14:52 Order name: IV Saline Lock; Complete Time: 15:47 [facility] 11/06 14:52 Order name: Labs collected and sent; Complete Time: 15:47 [facility] 11/06 15:01 Order name: CT Abd/Pelvis - IV Contrast Only; Complete Time: 17:04 [facility] 11/06 17:34 Order name: US Abdomen Limited [facility] Administered Medications: 15:48 Not Given (Patient Refused): Zofran (Ondansetron) 4 mg IVP once; over 2 minutes vg1 15:48 Not Given (Patient Refused): morphine 2 mg IVP once; RASS on ADMIN: Combtv4, Very vg1 Agttd3, Agttd2, Rstlss1, AlertClm0, Drwsy-1, Lt Sdtn-2, Mod Sdtn-3, Dp Sdtn-4, UnArsble-5 Disposition: 11/06/20 19:34 Discharged to Home. Impression: Other abdominal pain. - Condition is Stable. - Discharge Instructions: Abdominal Pain, Adult. - Prescriptions for Zofran ODT 4 mg Oral tablet,disintegrating - place 1 tablet by TRANSLINGUAL route every 4-6 hours; 20 tablet. Bentyl 20 mg Oral Tablet - take 2 tablet by ORAL route every 6 hours As needed; 40 tablet. Pepcid 20 mg Oral Tablet - take 1 tablet by ORAL route every 12 hours for 10 days; 20 tablet. - Medication Reconciliation Form, Thank You Letter, Antibiotic Education, Prescription Opioid Use form. - Follow up: Douglas Bentley MD; When: 2 - 3 days; Reason: Recheck today's complaints, Continuance of care, Re-evaluation by your physician. Addendum: 11/08/2020 07:50 Co-signature as Attending Physician, Clif Lee MD I agree with the assessment and c olsen plan of care. Signatures: Dispatcher [employer] Clif Alvarez MD MD cha Mickail, Joel, PA PA jmm Calderon, Audri, RN RN aa5 Mimi Vitale RN RN vg1 Corrections: (The following items were deleted from the chart) 11/06 20:18 19:34 11/06/2020 19:34 Discharged to Home. Impression: Other abdominal pain. Condition vg1 is Stable. Forms are Medication Reconciliation Form, Thank You Letter, Antibiotic Education, Prescription Opioid Use. Follow up: Douglas Bentley; When: 2 - 3 days; Reason: Recheck today's complaints, Continuance of care, Re-evaluation by your physician. denita
--- NOTE | 2020-11-06 19:57 | RAD REPORT ---
EXAM DESCRIPTION: US - Abdomen Exam Limited - 11/06/2020 7:50 pm CLINICAL HISTORY: Abdominal pain. COMPARISON: None. FINDINGS: The gallbladder wall is not thickened. A gallstone is not seen. The biliary tree is normal caliber. IMPRESSION: Unremarkable gallbladder ultrasound.
[2020-11-06 20:33] VITALS: TEMP 98.7
[2020-11-06 20:36] VITALS: O2SAT 100
[2020-11-06 20:37] VITALS: BP 114/78
== END 2020-11-06 20:18 | disposition home or self-care (01) ==
LOC: ER 14:42
DX: R10.9 Unspecified abdominal pain (principal); I10 Essential (primary) hypertension
CPT/HCPCS: 36415; 74177; 76705; 80048; 80076; 81003; 81025; 83690; 85025; 99284; J2270; J2405; Q9967

== ENCOUNTER 2021-03-07 14:07 | Emergency (ER) | payer OTHER, SELFPAY ==
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
[2021-03-07 15:45] VITALS: O2SAT 100
[2021-03-07 15:46] VITALS: BP 126/98; TEMP 99.2
== END 2021-03-07 15:25 | disposition home or self-care (01) ==
LOC: ER 14:07
DX: M54.2 Cervicalgia (principal); V49.40XA Driver injured in collision with unspecified motor vehicles in traffic accident, initial encounter; I10 Essential (primary) hypertension
CPT/HCPCS: 70450; 72125; 99284

== ENCOUNTER 2022-03-30 23:47 | Emergency (ER) | payer OTHER, SELFPAY ==
--- OUTSIDE RECORDS SUMMARY | 2022-03-30 23:51 | XMS REPORT | Continuity of Care Document ---
:1985 Author Organization [facility] t Address [facility] [place] [address] Care Team Providers Name Role Phone TOMMY ESQUIVEL Primary Care Physician Unavailable LIZZ ROONEY Attending Clinician Unavailable Lizz Rooney MD Attending Clinician Doctor Unassigned, [place] Attending Clinician Unavailable SOCORRO WOLF Attending Clinician Unavailable EREN BOLAÑOS Attending Clinician Unavailable EREN BOLAÑOS Attending Clinician Unavailable Eren Bolaoñs MD Attending Clinician _[facility] Attending Clinician Unavailable 2, Adc Lab Attending Clinician Unavailable Socorro Wolf PA-C Attending Clinician Melissa Momin RN Attending Clinician Unavailable Only, Ang Db Test Attending Clinician Unavailable Kadi Richards MD Attending Clinician KADI RICHARDS Attending Clinician Unavailable GAYATRI ASCENCIO Attending Clinician Unavailable Gayatri Perdue Attending Clinician Sonya Ascencio DO Attending Clinician Pallavi Soares LMSW Attending Clinician Unavailable Deonte Ortez Attending Clinician Bhakti Vera MD Attending Clinician Sky GONZALEZ, Hillary Murdock Attending Clinician EREN BOLAÑOS Admitting Clinician Unavailable GC_[facility]_Cristobal Admitting Clinician Unavailable Payers Payer Name Policy Type Policy Number Effective Date Expiration Date S ource [place] [id number] 2016 00:00:00 [place] CHILDRENS [id number] 2016 [place] 00:00:[place] [id number] [place]00 [place] [id number] 2021 00:00:00 Problems Condition Condition Condition Status Onset Resolution Last Treating Co mments Source Name Details Category Date Date Treatment Clinician Date Breast Breast Disease Active Univers pain pain 4-22 ity of 00:00: [address] Lump or Lump or Disease Active Univers mass in mass in 4-22 ity of breast breast 00:00: [address] Pain Pain Disease Active Univers pelvic pelvic 4-22 ity of 00:00: [address] Family Family Disease Active Univers history of history of 2-23 it y of diabetes diabetes 00:00: [place] mellitus mellitus 00 Medica l Branch Essential Essential Disease Active Uni vers hypertensi hypertensi 8-26 it y of on, benign on, benign 00:00: [address] Allergies, Adverse Reactions, Alerts Allergy Allergy Status Severity Reaction(s) Onset Inactive Treating Comm ents Source Name Type Date Date Clinician NO KNOWN Drug Active Univers ALLERGIE Class ity of S [facility] Social History Social Habit Start Date Stop Date Quantity Comments Source Exposure to 2021-09-17 2021-09-27 Not sure [facility] SARS-CoV-2 00:00:00 10:05:00 [facility] (event) Branch Alcohol intake 2021-09-27 2021-09-27 Ex-drinker [facility] 00:00:00 00:00:00 (finding) [facility] Tobacco use and 2013-10-07 2013-10-07 Never used Universit y of exposure 00:00:00 00:00:00 [facility] Sex Ass[birth year] At [birth year] Universit y of 00:00:00 00:00:00 [facility] Smoking Status Start Date Stop Date Source Never smoker [facility] Medications Ordered Filled Start Stop Current Ordering Indication Dosage Frequency Signature Comments Components Source Medication Medication Date Date Medication? Clinician (SIG) Name Name maricarmeniptyli Yes [id number] 25mg Take 1 Univers ne 25 mg 3-22 capsule by ity o f capsule 00:00: mouth 3 (three) Medical times Branch daily. nortriptyli Yes [id number] 25mg Take 1 Univers ne 25 mg 3-22 capsule by ity o f capsule 00:00: mouth 3 (three) Medical times Branch daily. busPIRone Yes 15mg Take 15 mg Un jaja 15 mg 3-18 by mouth 2 ity of tablet 00:00: (two) times Medical daily. Branch busPIRone Yes 15mg Take 15 mg Un jaja 15 mg 3-18 by mouth 2 ity of tablet 00:00: (two) times Medical daily. Branch CONSTULOSE Yes TAKE 30 ML U nivers 10 gram/15 2-25 BY MOUTH ity o f mL solution 00:00: NIGHTLY [place] 00 NEEDED Medical Branch CONSTULOSE Yes TAKE 30 ML U nivers 10 gram/15 2-25 BY MOUTH ity o f mL solution 00:00: NIGHTLY [place] 00 NEEDED Medical Branch clindamycin Yes TAKE 2 Univ ers 150 mg 2-01 CAPSULES ity of capsule 00:00: BY MOUTH EVERY 6 Medical HOURS Branch UNTIL ALL TAKEN clindamycin Yes TAKE 2 Univ ers 150 mg 2-01 CAPSULES ity of capsule 00:00: BY MOUTH EVERY 6 Medical HOURS Branch UNTIL ALL TAKEN amoxicillin 2021-0 Yes 500mg Take 500 U nivers 500 mg 1-25 mg by ity of capsule 00:00: mouth 3 (three) Medical times Branch daily. amoxicillin 2021-0 Yes 500mg Take 500 U nivers 500 mg 1-25 mg by ity of capsule 00:00: mouth 3 (three) Medical times Branch daily. topiramate 2020-06 Yes [id number] 25mg Take 1 Univers 25 mg 2-03 tablet by ity of tablet 00:00: mouth 2 (two) Medical times Branch daily. After one week, then increase to 2 PO BID. topiramate 2020-06 Yes [id number] 25mg Take 1 Univers 25 mg 2-03 tablet by ity of tablet 00:00: mouth 2 [place] 00 (two) Medical times Branch daily. After one week, then increase to 2 PO BID. omeprazole 2020-0 Yes Univers 40 mg 9-24 ity of capsule 00:00: [place] 00 Medical Branch omeprazole 2020-0 Yes Univers 40 mg 9-24 ity of capsule 00:00: [place] Medical Branch dicyclomine 2020-0 Yes [id number] 20mg Take 1 Univers 20 mg 8-08 tablet by ity of tablet 00:00: mouth [place] 00 every 6 Medical (six) Branch hours as needed for Abdominal pain. dicyclomine 2020-0 Yes [id number] 20mg Take 1 Univers 20 mg 8-08 tablet by ity of tablet 00:00: mouth [place] 00 every 6 Medical (six) Branch hours as needed for Abdominal pain. spironolact 0 Yes [id number] TAKE 1 U nivers one 25 mg 4-14 TABLET BY ity o f tablet 00:00: MOUTH ONCE [place] 00 DAILY FOR Medical 30 DAYS Branch spironolact 2020-0 Yes [id number] TAKE 1 U nivers one 25 mg 4-14 TABLET BY ity o f tablet 00:00: MOUTH ONCE [place] 00 DAILY FOR Medical 30 DAYS Branch carvediloL 0 Yes [id number] 25mg Take 25 mg Univers 25 mg 4-05 by mouth 2 ity of tablet 00:00: (two) [place] 00 times Medical daily with Branch meals. carvediloL 0 Yes [id number] 25mg Take 25 mg Univers 25 mg 4-05 by mouth 2 ity of tablet 00:00: (two) [place] 00 times Medical daily with Branch meals. losartan 0 Yes [id number] TAKE 1 Univ ers 100 mg 4-02 TABLET BY ity of tablet 00:00: MOUTH ONCE [place] 00 DAILY FOR Medical 30 DAYS Branch losartan 2020-0 Yes [id number] TAKE 1 Univ ers 100 mg 4-02 TABLET BY ity of tablet 00:00: MOUTH ONCE [place] 00 DAILY FOR Medical 30 DAYS Branch Immunizations Ordered Filled Immunization Date Status Comments [facility] e Immunization Name Name SARS-COV-2 COVID-19 2020-08-23 Completed Unive rsity of Qubell VACCINE 00:00:00 [facility] SARS-COV-2 COVID-19 2020-08-23 Completed Unive rsity of PFIZER VACCINE 00:00:00 [facility] SARS-COV-2 COVID-19 2020-08-02 Completed Unive rsity of PFIZER VACCINE 00:00:00 [facility] SARS-COV-2 COVID-19 2020-08-02 Completed Unive rsity of PFIZER VACCINE 00:00:00 [facility] TDAP 2013-06-09 Completed University 00:00:00 [facility] TDAP 2013-06-09 Completed University 00:00:00 [facility] Vital Signs Vital Name Observation Time Observation Value Comments Source Systolic blood 2021-09-27 15:38:00 144 mm[Hg] Univer sity of pressure [facility] Diastolic blood 2021-09-27 15:38:00 97 mm[Hg] Unive rsity of pressure [facility] Heart rate 2021-09-27 15:32:00 62 /min [facility] Body temperature 2021-09-27 15:32:[address] [facility] Res[facility] rate 2021-09-27 15:32:00 18 /min [facility] Body height 2021-09-27 15:32:00 160 cm [facility] Body weight 2021-09-27 15:32:00 53.162 kg [facility] BMI 2021-09-27 15:32:00 20.76 kg/m2 [facility] Procedures This patient has no known procedures. Encounters Start End Encounter Admission Attending Care Care Encounter Source Date/Time Date/Time Type Type Clinicians Facility Department ID 2021-04-[address] [facility] [id number] Univers 13:55:27 ity of [facility] 2021-04-[address] [facility] [id number] Univers 15:04:47 ity of [facility] 2021-03-[address] [facility] [id number] Univers 07:30:52 ity of [facility] 2021-03-[address] [facility] [id number] Univers 07:28[facility] 2021-11-21 2021-11-21 [facility] [id number] Univers 00:00:00 00:00:00 LIZZ tadeo [facility] 2021-10-12 2021-10-12 [facility] 1.2.840.114 [id number] Univers 00:00:00 00:00:00 Management Lizz BELCHER [id number] ity [facility] [id number] [place] [phone] Ne dical [address] 2021-09-27 2021-09-27 [facility] [id number] Univers 10:00:00 11:32:43 LIZZ cristina [facility] 2021-09-27 2021-09-27 Office [facility] [id number] Univers 10:00:00 11:32:43 Visit Lizz BELCHER [id number] ity [facility] [id number] [place] [phone] Ne dical NAL [address] [place] [address] 2021-09-27 2021-09-27 Outpatient R [facility] [id number] Univers 10:00:00 11:32:43 LIZZ [facility] 2021-09-27 2021-09-27 Orders Doctor NATION 1.2.840.114 [id number] Univers 00:00:00 00:00:00 Only Unassigned, MIRELLA [id number] ity of [place] [facility] 4.2.7.2.686 Og as [phone] [address] 2021-09-26 2021-09-26 Outpatient Yanira WOLF [facility] [id number] Univers 15:30:00 15:30:00 SOCORRO tadeo [facility] 2021-08-25 2021-08-25 Outpatient EREN YOUNG [facility] [id number] Univers 11:15:00 23:59:00 EREN BOLAÑOS [facility] 2021-08-25 2021-08-25 Outpatient EREN YOUNG [facility] [id number] Univers 11:15:00 11:15:00 EREN BOLAÑOS [facility] 2021-08-22 2021-08-22 Outpatient R EREN BOLAÑOS [facility] [id number] Univers 11:20:00 12:02:59 EREN BOLAÑOS cristina [facility] 2021-08-22 2021-08-22 Office Miky [facility] 1.2.840.114 [id number] Univers 11:20:00 12:02:59 Visit [facility] [id number] ity of [place] 4.2.7.2.686 Og as NIRU?BLEA [phone] Ne dicsanam [address] 2021-08-21 2021-08-21 Telephone Miky [facility] 1.2.840.114 [id number] Univers 00:00:00 00:00:00 [facility] [id number] ity of [place] 4.2.7.2.686 Og as NIRU?BLEA [phone] Ne dicsanam [address] 2021-08-14 2021-08-14 Outpatient GC_[facility]_ PRIV PRIV [id number] [facility] 01:50:00 01:50:00 Cristobal [id number] [facility] 2021-06-30 2021-06-30 Outpatient R LUCIANO [facility] [id number] Univers 00:00:00 00:00:00 SOCORRO davidcristina [facility] 2021-06-26 2021-06-26 Control Clerk Repairs 2, Adc Lab [facility] 1.2.840.114 [id number] Univers 11:30:00 11:30:00 Visit Socorro oWlf [id number] ity of [facility] 4.2.7.2.686 [place] [phone] Ne alcon [address] 2021-06-26 2021-06-26 Outpatient R LUCIANO [facility] [id number] Univers 10:15:00 11:20:25 SOCORRO tadeo [facility] 2021-06-26 2021-06-26 Office Lucinao [facility] [id number] Univers 10:15:00 11:20:25 Visit Socorro BELCHER [id number] i ty of [facility] 4.2.7.2.686 [place] [phone] Ne dical NAL [address] [facility] 2021-06-26 2021-06-26 Letter Luciano WAIRVIN [id number] Univers 00:00:00 00:00:00 (Out) Socorro BELCHER [id number] i ty of [facility] 4.2.7.2.686 [place] [phone] Ne dical NAL [address] [facility] 2021-06-26 2021-06-26 Orders Doctor NATION 1.2.840.114 [id number] Univers 00:00:00 00:00:00 Only Unassigned, MIRELLA [id number] ity of [place] [facility] 4.2.7.2.686 [place] as [phone] [facility] [address] 2021-06-02 2021-06-02 Letter RIOS Momin 1.2.840.114 [id number] Univers 00:00:00 00:00:00 (Out) Melissaarely VU [id number] it y of [facility] 4.2.7.2.686 [place] as [id number] [facility] [address] 2021-05-31 2021-05-31 Laboratory Only, Ang Db Test [facility] 1.2.8 40.114 [id number] Univers 17:15:00 17:33:23 Only Kadi Richards [id number] ity of [place] 4.2.7.2.686 Og as NIRU?BLEA [phone] [address] MEDICAL OFFICE BUILDING 2021-05-31 2021-05-31 Outpatient R HEDY [facility] [id number] Univers 17:15:00 17:33:23 KADI cristina [facility] 2021-05-31 2021-05-31 Outpatient R HEDY [facility] [id number] Univers 17:15:00 17:15:00 KADI cristina [facility] 2021-05-22 2021-05-22 [facility] [id number] Univers 13:02:00 23:59:00 GAYATRI tadeo [facility] 2021-05-22 2021-05-22 Outpatient [facility] [id number] Univers 13:02:00 23:59:00 GAYATRI tadeo [facility] 2021-05-22 2021-05-22 [facility] 1.2.840.114 [id number] Univers 13:00:00 23:59:00 Encounter Gayatri MACKENZIE [id number] ity of [facility] 4.2.7.2.686 [place] AT [phone] Ne dical [place] 800 [facility] 2021-05-18 2021-05-18 Telephone [facility] [id number] Univers 00:00:00 00:00:00 Lizz BELCHER [id number] ity of [facility] 4.2.7.2.686 [place] [facility] [phone] Ne dical NAL [address] [facility] 2021-05-05 2021-05-05 Outpatient EREN YOUNG [facility] [id number] Univers 10:00:00 15:42:27 EREN BOLAÑOS [facility] 2021-05-05 2021-05-05 Outpatient EREN YOUNG [facility] [id number] Univers 10:00:00 15:42:27 EREN BOLAÑOS [facility] 2021-05-05 2021-05-05 Office [facility] 1.2.840.114 [id number] Univers 09:04:10 15:42:27 Visit [facility] [id number] ity of [place] 4.2.7.2.686 Og as NIRU?BLEA [phone] Ne dical KNEY [address] MEDICAL OFFICE BUILDING 2021-05-02 2021-05-02 [facility] 1.2.840.114 [id number] Univers 08:01:30 23:59:00 Encounter Gayatri BELCHER [id number] ity of [facility] 4.2.7.2.686 [place] [facility] [id number] [facility] [address] 2021-05-02 2021-05-02 Out[facility] [id number] Univers 08:00:43 08:00:00 GAYATRI tadeo [facility] 2021-05-02 2021-05-02 Outpatient [facility] [id number] Univers 08:00:43 08:00:00 GAYATRI tadeo [facility] 2021-05-02 2021-05-02 [facility] 1.2.840.114 [id number] Univers 08:00:00 08:00:00 Encounter Gayatri Valeria BELCHER [id number] ity of [place] 4.2.7.2.686 [facility] [id number] [facility] [address] 2021-05-02 2021-05-02 [facility] 1.2.840.114 [id number] Univers 00:00:00 00:00:00 Gayatri Shaw FIRMWARE ENGINEER [id number] it y of [facility] 4.2.7.2.686 [place] as MATERNAL [id number] Med ical & CHILD [address] [place] [address] 2021-04-24 2021-04-24 Orders Doctor RIOS 1.2.840.114 [id number] Univers 00:00:00 00:00:00 Only Unassigned, MIRELLA 350.1.13.10 ity of [place] [facility] 4.2.7.2.686 Og as [phone] [facility] [address] 2021-03-21 2021-03-21 [facility] 1.2.840.114 [id number] Univers 10:00:00 23:59:00 Encounter Gayatri Valeria Belcher [id number] ity of [place] 4.2.7.2.686 [facility] [phone] [facility] [address] 2021-03-21 2021-03-21 Outpatient [facility] [id number] Univers 10:00:00 10:00:00 GAYATRI tadeo [facility] 2021-03-21 2021-03-21 Outpatient [facility] [id number] Univers 00:00:00 00:00:00 GAYATRI ity [facility] 2021-03-07 2021-03-07 [facility] [id number] Univers 00:00:00 00:00:00 Lizz Isaac Simi 350.1.13.10 ity of [place] 4.2.7.2.686 [place] Profess[place] [phone] Ne dical [facility] 134 [facility] 2021-03-06 2021-03-06 [facility] 1.2.840.114 [id number] Univers 13:30:00 23:59:00 Encounter Gayatri Mcnealton 350.1.13.10 ity of [place] 4.2.7.2.686 [facility] [id number] [facility] [address] 2021-03-06 2021-03-06 Outpatient R [facility] [id number] Univers 00:00:00 23:59:00 GAYATRI tadeo [facility] 2021-03-06 2021-03-06 Outpatient R [facility] [id number] Univers 00:00:00 00:00:00 GAYATRI tadeo [facility] 2021-03-01 2021-03-01 [facility] 1.2.840.114 [id number] Univers 15:02:00 16:00:01 Visit Lizz Isaac Simi 350.1.13.10 ity of [place] 4.2.7.2.686 [place] Profess[place] [phone] [address] 2021-03-01 2021-03-01 Outpatient R [facility] [id number] Univers 15:00:00 15:00:00 LIZZ tadeo [facility] 2021-01-08 2021-01-08 [facility] 1.2.840.114 [id number] Univers 12:14:00 14:35:00 Sonya Belcher 350.1.13.10 ity of [place] 4.2.7.2.686 [place] [id number] [facility] [address] 2020-10-20 2020-10-20 [place]is [place] 1.2.840.114 [id number] 00:00:00 00:00:00 Management Pallavi Vinsony 350.1.13.10 [place] 4.2.7.2.686 [id number] 2020-10-20 2020-10-20 Lexis [place] 1.2.840.[id number] [facility] 00:00:00 00:00:00 Management Pallavi Vinsony 350.1.13.10 ity of [place] 4.2.7.2.686 [place] [id number] [address] 2020-10-10 2020-10-10 Orders Doctor RIOS 1.2.840.114 [id number] 00:00:00 00:00:00 Only Unassigned, MIRELLA 350.1.13.10 [place] [facility] 4.2.7.2.686 [id number] 2020-10-10 2020-10-10 Orders Doctor RIOS 1.2.840.[id number] [place] [address] 00:00:00 00:00:00 Only Unassigned, MIRELLA 350.1.13.10 ity of [place] [facility] 4.2.7.2.686 Og as [phone] [address] 2020-10-06 2020-10-06 Outpatient R [facility] [id number] Univers 09:30:00 09:30:00 ity [facility] 2020-10-06 2020-10-06 Outpatient [facility] [id number] Univers 09:30:00 09:30:00 GAYATRI ity [facility] 2020-09-24 2020-09-24 Emergency [facility] 1.2.840.114 [id number] 19:03:00 21:34:00 Deonte Belcher 350.1.13.10 [place] 4.2.7.2.686 [place] [id number] 084 2020-09-24 2020-09-24 Emergency [facility] 1.2.840.[id number] [facility] 19:03:00 21:34:00 Deonte Belcher 350.1.13.10 ity of [place] 4.2.7.2.686 [place] [facility] [id number] [facility] [address] 2020-09-23 2020-09-23 Outpatient R [facility] [id number] Univers 10:00:00 10:00:00 ity [facility] 2020-09-22 2020-09-22 Office [facility] [id number] 14:51:22 15:43:34 Visit Gayatri Shaw FIRMWARE ENGINEER 350.1.13.10 REGIONAL 4.2.7.2.686 MATERNAL [id number] & CHILD [address] [place] [address] 2020-09-22 2020-09-22 Office [facility] [id number] Univers 14:51:22 15:43:34 Visit Gayatri Shaw FIRMWARE ENGINEER 350.1.13.10 it y of [facility] 4.2.7.2.686 Og as MATERNAL [id number] [facility] & CHILD [address] [place] [address] 2020-09-22 2020-09-22 Office [facility] [id number] Univers 14:51:22 15:43:34 Visit Gayatri Shaw FIRMWARE ENGINEER 350.1.13.10 it y of [facility] 4.2.7.2.686 Og as MATERNAL [phone] [address] 2020-09-22 2020-09-22 Outpatient [facility] [id number] Univers 14:30:00 14:30:00 GAYATRI tadeo [facility] 2020-09-22 2020-09-22 Outpatient [facility] [id number] Univers 14:30:00 14:30:00 GAYATRI tadeo [facility] 2020-09-22 2020-09-22 Orders Doctor NATION 1.2.840.114 [id number] Univers 00:00:00 00:00:00 Only Unassigned, MIRELLA 350.1.13.10 ity of [place] [facility] 4.2.7.2.686 Og as [id number] [facility] [address] 2020-01-12 2020-01-12 Orders Doctor NATION 1.2.840.114 [id number] Univers 00:00:00 00:00:00 Only Unassigned, MIRELLA 350.1.13.10 ity of [place] [facility] 4.2.7.2.686 Og [phone] [facility] [address] 2019-12-19 2019-12-19 Emergency [facility], [facility] [id number] Univers 20:49:10 23:55:00 Bhakti Belcher 350.1.13.10 ity of [place] 4.2.7.2.686 [facility] [id number] [facility] [address] 2019-12-19 2019-12-19 Emergency [facility] [id number] Univers 00:57:07 04:28:00 Hillary Belcher 350.1.13.10 ity of [place] 4.2.7.2.686 [facility] [id number] [address] Results Test Description Test Time Test Comments Results Result Comments Source THYROID II PROFILE (TU,T4,FTI,TSH) 2021-08-24 06:27:40 Test Item Value Reference Range Interpretation Comme nts T-UPTAKE (test code = 2817) 33.1 % 24.3-39.0 THYROX. BIND. CAPAC. (test 1.0 0.8-1.3 code = 36754) T4 (THYROXINE) (test code = 5.4 UG/DL 4.5-10.5 2819) CORRECTED T4 (FTI) (test 5.4 UG/DL 4.2-11.6 code = 2820) TSH, THIRD GENERATION (test 0.927 UIU/ML 0.400-4.100 UNLESS OTHERWISE INDICATED, code = 2821) ALL TESTING PER FORMED ATCLINICAL PATH OLOGY LABORATORIES, [facility]. [address] [place] [address] 1430 MEDICAL BILLING SUPERVISOR: Vera RUIZ [id number] [place]. [id number] SEDIMENTATION [id number] 05:02:30 Test Item Value Reference Range Interpretation Comments SEDIMENTATION RATE (test code = 12 MM/HOUR 0-20 1017) GEOFF AUTOIMMUNE PANEL REFLEX TO [id number] 04:44:36 Test Item Value Reference Range Interpretation Comments ANTI-NUCLEAR NEGATIVE NEGATIVE Methodology is Indirect ANTIBODIES (test Immunofluor escent Assay code = 3506) (IFA) with a t itering system using He p2000 cells (Hep2 marce ls transfected wit h SS-A/Ro). SJOGREN'S SS-A <0.2 AI <1.0 ANTIBODY (test code = 48154) SJOGREN'S SS-B <0.2 AI <1.0 ANTIBODY (test code = 54915) MCKNIGHT (Sm) ANTIBODY <0.2 AI <1.0 (test code = 39614) TREE PULLER ANTIBODY (test <0.2 AI <1.0 code = 09557) SCL-70 ANTIBODY <0.2 AI <1.0 (test code = 4606) Ana Cristina-1 ANTIBODY (test <0.2 AI <1.0 code = 4680) CENTROMERE B <0.2 AI <1.0 ANTIBODY (test code = 4630) RIBOSOMAL P <0.2 AI <1.0 ANTIBODY (test code = 10469) CHROMATIN ANTIBODY <0.2 AI <1.0 (test code = 79208) THYROID PEROXIDASE 1 IU/ML <9 AB (test code = 40479) COMPLEMENT C3 (test 110 MG/DL 90-180 code = 3509) COMPLEMENT C4 (test 15 MG/DL 10-40 code = 3510) RHEUMATOID FACTOR, <10 IU/ML <14 QUANT (test code = 3502) dsDNA ANTIBODY 1.0 SEE BELOW NEGATIVE . . . . . . . (test code = 91994) . . . . . . . IU/ML <=4.9 INDETERMINATE. . . . . . . . . . . . IU/ ML 5.0-9.0 POSITIVE . . . . . . . . . . . . . . IU/ ML >=10.0 dsDNA ANTIBODY (NOTE) NEGATIVE NOTE: REFLEX CRITERIA REFLEX (test code = NOT MET FOR DNA DOUBLE 04243) STRANDED ANTIBO DY BY GIANNA METHOD. C-REACTIVE [id number] 04:22:50 Test Item Value Reference Range Interpretation Comments C-REACTIVE PROTEIN (test code = <0.3 MG/DL <0.5 7653) COMPREHENSIVE METABOLIC [id number] 04:22:12 Test Item Value Reference Range Interpretation Comments GLUCOSE (test code = 77 MG/DL 70-99 2216) BUN (test code = 13 MG/DL 6-20 2207) CREATININE (test 0.58 MG/DL 0.60-1.30 L code = 2213) eGFR (2020 CKD-EPI) 121 >60 (test code = 86359) ML/MIN/1.73 CALC BUN/CREAT (test 22 RATIO 6-28 code = 2234) SODIUM (test code = 138 MEQ/L 566-520 1337) POTASSIUM (test code 4.5 MEQ/L 3.5-5.4 = 2227) CHLORIDE (test code 103 MEQ/L 95-107 = 2214) CARBON DIOXIDE (test 23 MEQ/L 19-31 code = 2205) CALCIUM (test code = 9.5 MG/DL 8.5-10.5 2208) PROTEIN, TOTAL (test 7.4 G/DL 6.1-8.3 code = 2228) ALBUMIN (test code = 4.5 G/DL 3.5-5.2 2200) CALC GLOBULIN (test 2.9 G/DL 1.9-3.7 code = 2239) CALC A/G RATIO (test 1.6 RATIO 1.0-2.6 code = 2233) BILIRUBIN, TOTAL 0.3 MG/DL See_Comment [Automated message] (test code = 2206) The syste m which generated this result transmit elmer reference range : <=1.2. The refe rence range was not u sed to interpret th is result as normal/abnormal . ALKALINE PHOSPHATASE 69 U/L 40-114 (test code = 2203) AST (test code = 18 U/L 9-40 2217) ALT (test code = 15 U/L 5-40 2218) CBC W/AUTO DIFF WITH [id number] 02:47:17 Test Item Value Reference Range Interpretation Comments WBC (test code = 6.5 K/UL 3.5-11.0 1001) RBC (test code = 4.31 M/UL 3.80-5.40 1002) HEMOGLOBIN (test code 12.7 G/DL 11.5-15.5 = 1003) HEMATOCRIT (test code 38.0 % 34.0-45.0 = 1004) MCV (test code = 88.2 fL 80.0-99.0 1005) MCH (test code = 29.5 PG 25.0-33.0 1006) MCHC (test code = 33.4 G/DL 31.0-36.0 1007) RDW (test code = 12.1 % 11.5-15.0 1038) NEUTROPHILS (test 59.2 % code = 1008) LYMPHOCYTES (test 30.8 % code = 1010) MONOCYTES (test code 7.5 % = 1011) EOSINOPHILS (test 1.7 % code = 1012) BASOPHILS (test code 0.6 % = 1013) IMMATURE GRANULOCYTES 0.2 % (test code = 1036) NUCLEATED RBCS (test 0.0 /100 WBC'S See_Comment [Aut omated code = 1065) message] The sy stem which generated this result transmitted reference range : 0.0. The refere nce range was not u sed to interpret th is result as normal/abnormal . PLATELET COUNT (test 262 K/UL 130-400 code = 1015) ABSOLUTE NEUTROPHILS 3.85 K/UL 1.50-7.50 (test code = 1066) ABSOLUTE LYMPHOCYTES 2.00 K/UL 1.00-4.00 (test code = 1067) ABSOLUTE MONOCYTES 0.49 K/UL 0.20-1.00 (test code = 1068) ABSOLUTE EOSINOPHILS 0.11 K/UL 0.00-0.50 (test code = 1040) ABSOLUTE BASOPHILS 0.04 K/UL 0.00-0.20 (test code = 1069) ABS IMMATURE 0.01 K/UL 0.00-0.10 GRANULOCYTES (test code = 1020) ABS NUCLEATED RBCS 0.00 K/UL 0.00-0.11 (test code = 03801) TSH, THIRD [id number] 06:17:28 Test Item Value Reference Range Interpretation Comments TSH, THIRD 0.794 UIU/ML 0.400-4.100 UNLESS OTHERWI SE GENERATION (test INDICATED, ALL TESTING code = 2821) [facility], [address] [place] [address] [facility] DIRECTOR: KULWINDER JAUREGUI M.D. CLIA NUMBER [id number] CAP ACCREDITATION N O. [id number] LIPID [id number] 05:47:18 Test Item Value Reference Range Interpretation Comments CHOLESTEROL (test 209 MG/DL <200 H code = 2210) TRIGLYCERIDES (test 82 MG/DL <150 code = 2232) HDL CHOLESTEROL (test 77 MG/DL >39 code = 2220) CALC LDL CHOL (test 114 MG/DL <100 H NOTE: C ALCULATED LDL code = 2237) IS BASED ON GAURAV-ZAVALA METHOD WHICHINCLUDES ADJUSTABLE TRIGLYCERIDE:VL DL CHOLESTEROL RAT IO.THIS FACTOR VARIES B Y MEASURED TRIGLY CERIDE AND NON-HDLCHOL ESTEROL CONCENTRATIONS WITH INCREASED CALCU LATED LDL SEENIN HIGH ER TRIGLYCERIDE OR LOWER NON-HDL SPECIME NS. FOR MOREINFORMATION , SEE CLIENT ANNOUNCE MENT AT [email or web address] RATIO LDL/HDL 1.48 RATIO <3.22 (test code = 2238) COMPREHENSIVE METABOLIC [id number] 05:47:18 Test Item Value Reference Range Interpretation Comments GLUCOSE (test code = 98 MG/DL 70-99 2216) BUN (test code = 9 MG/DL 6-20 2207) CREATININE (test 0.60 MG/DL 0.60-1.30 code = 2214) eGFR (2020 CKD-EPI) 120 >60 (test code = 81783) ML/MIN/1.73 CALC BUN/CREAT (test 15 RATIO 6-28 code = 2235) SODIUM (test code = 138 MEQ/L 242-878 1442) POTASSIUM (test code 4.5 MEQ/L 3.5-5.4 = 222) CHLORIDE (test code 103 MEQ/L 95-107 = 221) CARBON DIOXIDE (test 25 MEQ/L 19-31 code = 2206) CALCIUM (test code = 9.6 MG/DL 8.5-10.5 2208) PROTEIN, TOTAL (test 7.3 G/DL 6.1-8.3 code = 2229) ALBUMIN (test code = 4.2 G/DL 3.5-5.2 2200) CALC GLOBULIN (test 3.1 G/DL 1.9-3.7 code = 2240) CALC A/G RATIO (test 1.4 RATIO 1.0-2.6 code = 2234) BILIRUBIN, TOTAL 0.3 MG/DL See_Comment [Automated message] (test code = 2207) The [employer] which generated this result transmit elmer reference range : <=1.2. The refe rence range was not u sed to interpret th is result as normal/abnormal . ALKALINE PHOSPHATASE 68 U/L 40-114 (test code = 2203) AST (test code = 14 U/L 9-40 2217) ALT (test code = 11 U/L 5-40 2218)
[2022-03-31 00:14] LABS: Urine Blood Negative (Negative); Urine Glucose Negative (Negative); Urine Protein Negative (Negative)
[2022-03-31 00:23] LABS: Urine Bacteria <20 /HPF (<20)
[2022-03-31] MEDS ORDERED: KETOROLAC 30 MG/ML INJ ONE (00:25)
[2022-03-31 00:28] LABS: Absolute Lymphocytes (CBC) 1.3 K/uL (0.7-4.9); Hematocrit 38.6 % (36.0-45.0); Lymphocytes % 47.8 % (15.3-44.8); MCV 86.1 fL (80-100); MPV 6.7 fL (7.6-11.3); RBC Red Blood Cell Count 4.48 M/uL (3.86-4.86)
[2022-03-31 00:42] LABS: Potassium 3.7 mmol/L (3.5-5.1)
--- NOTE | 2022-03-31 02:07 | RAD REPORT ---
EXAM DESCRIPTION: RAD - Chest Single View - 03/31/2022 12:29 am CLINICAL HISTORY: CHEST PAIN COMPARISON: Abdomen Pelvis Wo Contrast dated 03/27/2022; Abdomen Pelvis Wo Contrast dated 021; Abdomen Pelvis Wo Contrast dated 09/05/2020; Abdomen Pelvis Wo Contrast dated 01/27/2019Chest S markos View dated 12/21/2019; CHEST PA AND LAT 2 VIEW dated 01/20/2009; CHEST PA AND LAT 2 VIEW dated FINDINGS: Lines: None. Lungs: No evidence of edema or pneumonia. Pleural: No significant pleural effusions or pneumothorax. Cardiac: The heart size is within normal limits. Mediastinum: Within normal limits. Bones: No acute fractures. Other: None IMPRESSION: No acute cardiopulmonary disease.
--- NOTE | 2022-03-31 02:21 | EDPHYS ---
Physician Documentation [facility] Name: Jeanine Andino Age: 36 yrs Sex: Female : 1985 Arrival Date: 03/30/2022 Time: 23:50 Bed 14 Private MD: ED Physician Arnie Resendiz HPI: 03/31 00:10 This 36 yrs old Female presents to ER via Ambulatory with complaints of bs3 Abdominal Pain, Back Pain. 00:10 36-year-old female history of hypertension, GERD, diverticulosis who presents with bs3 upper back pain she notes that has been going on for the past couple days she feels like it is around her kidneys it travels up toward the right side of her neck she also notes some left upper abdominal pain the pain has been ongoing for approximately 4 days nothing makes it better or worse she denies any fevers chills chest pain shortness of breath nausea or vomiting any vaginal pain or discharge she does not think she is she notes that she often has pain on the right side of her back but usually does not have it on the left side no sick contacts no recent travel she has not taken anything for the pain pain is moderate intensity nothing seems to make it better or worse. 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 - Social history:: Smoking status: Patient denies any tobacco usage or history of. ROS: 03/31 00:10 Constitutional: Negative for fever, chills Eyes: Negative for injury, pain, redness, bs3 and discharge. All other systems are negative. Exam: 00:10 Constitutional: This is a well developed, well nourished patient who is awake, alert, bs3 and in no acute distress. Head/Face: Normocephalic, atraumatic. Eyes: Pupils equal round and reactive to light, extra-ocular motions intact. Lids and lashes normal. ENT: mmm, no posterior phyarngeal erythema Neck: Trachea midline, no thyromegaly, no neck stiffness Chest/axilla: Normal chest wall appearance and motion. Nontender with no deformity. No lesions are appreciated. Cardiovascular: Regular rate and rhythm with a normal S1 and S2. symmetric pulses in upper extremities Respiratory: Lungs have equal breath sounds bilaterally, clear to auscultation, no respiratory distress Abdomen/GI: Soft, non-tender, no rebound or guarding Skin: Warm, dry with normal turgor. Normal color with no rashes, no lesions, and no evidence of cellulitis. MS/ Extremity: Pulses equal, no cyanosis. Neurovascular intact. Full, normal range of motion. Neuro: Awake and alert, GCS 15, oriented to person, place, time, and situation. Cranial nerves II-XII grossly intact. Motor strength 5/5 in all extremities. Sensory grossly intact. Psych: Awake, alert, with orientation to person, place and time. Behavior, mood, and affect are within normal limits. Vital Signs: 03/30 23:55 BP 147 / 111; Pulse 68; Resp 18; Temp 98.5; Pulse Ox 100% ; Weight 55.79 kg; Height 5 kb3 ft. 3 in. (160.02 cm); Pain 03/12; 03/31 02:46 BP 139 / 89; Pulse 67; Resp 19; Temp 98.4; Pulse Ox 100% on R/A; ke1 03/30 23:55 Body Mass Index 21.79 (55.79 kg, 160.02 cm) kb3 MDM: 03/30 23:50 Patient medically screened. bs3 03/31 00:10 Data reviewed: vital signs, nurses notes, old medical records. ED course: Patient with bs3 atypical back pain not consistent with aortic dissection her vital signs are notable for normal pulse ox no hypoxia she is PE RC negative will rule out lower lobe pneumonia will rule out UTI will rule out possible musculoskeletal possibly related to stress and anxiety given her history will. ED course: will reassess. 02:19 ED course: pt reassessed, sleeping comfortably, labs normal, cxr neg for acute bs3 pathology, neg ua/, unclear etiology for symptoms, but she is clinically stable for discharge, advised nsaid for pain and outpatient f/u. . 10/29 00:03 Order name: UA MICROSCOPIC; Complete Time: 02:13 bs3 03/31 00:09 Order name: CBC with Diff; Complete Time: 02:13 bs3 03/31 00:09 Order name: BMP; Complete Time: 02:13 bs3 03/31 00:09 Order name: Chest Single View XRAY; Complete Time: 02:13 bs3 03/31 00:14 Order name: Urine Dipstick-Ancillary; Complete Time: 02:13 EDMS 03/31 00:15 Order name: Urine --Ancillary (enter results); Complete Time: 02:13 mw2 03/31 00:03 Order name: Urine Test (obtain specimen); Complete Time: 00:15 bs3 Administered Medications: 00:32 Not Given (Patient Refused): Ketorolac 15 mg IVP once ke1 Disposition Summary: 03/31/22 02:20 Discharge Ordered Location: Home bs3 Problem: new bs3 Symptoms: are resolved bs3 Condition: Stable bs3 Diagnosis - Low back pain bs3 - UPPER BACK PAIN bs3 Followup: bs3 - With: Private Physician - When: 2 - 3 days - Reason: If symptoms return Discharge Instructions: - Discharge Summary Sheet bs3 - Chronic Back Pain bs3 - Pain Without a Known Cause bs3 - Musculoskeletal Pain bs3 Forms: - Medication Reconciliation Form bs3 - Thank You Letter bs3 - Antibiotic Education bs3 - Prescription Opioid Use bs3 Signatures: Dispatcher [employer] Cesia Calixto RN RN kb3 Arnie Resendiz MD MD bs3 Felix Posey RN ke1
--- NOTE | 2022-03-31 02:21 | ER ---
Nurse's Notes [facility] Name: Jeanine Andino Age: 36 yrs Sex: Female : 1985 Arrival Date: 03/30/2022 Time: 23:50 Bed 14 Private MD: Diagnosis: Low back pain;UPPER BACK PAIN Presentation: 03/30 23:55 Chief complaint: Patient states: Pt reports pain that began in right lower back and kb3 progressed into the right upper back, then across her shoulders to the left upper back, then down the left side of her back and wraps around into her left lateral ribs. Denies N/V/fever. Reports constipation. Coronavirus screen: Vaccine status: Patient reports receiving the 2nd dose of the covid vaccine. Client denies travel out of the [place] in the last 14 days. Ebola Screen: Patient negative for fever greater than or equal to 101.5 degrees Fahrenheit, and additional compatible Ebola Virus Disease symptoms Patient denies exposure to infectious person. Patient denies travel to an Ebola-affected area in the 21 days before illness onset. Initial Sepsis Screen: Does the patient meet any 2 criteria? No. Patient's initial sepsis screen is negative. Does the patient have a suspected source of infection? No. Patient's initial sepsis screen is negative. Risk Assessment: Do you want to hurt yourself or someone else? Patient reports no desire to harm self or others. Onset of symptoms was March 29, 2022. 23:55 Method Of Arrival: Ambulatory kb3 23:55 Acuity: SUNG 3 kb3 Triage Assessment: 23:58 General: Appears in no apparent distress. Behavior is calm, cooperative. Pain: kb3 Complains of pain in back and anterior aspect of left lateral abdomen Pain does not radiate. Pain currently is 10 out of 10 on a pain scale. GI: Reports constipation. 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 - Social history:: Smoking status: Patient denies any tobacco usage or history of. Screenin/29 00:22 Abuse screen: Denies threats or abuse. Nutritional screening: No deficits noted. ke1 Tuberculosis screening: No symptoms or risk factors identified. Fall Risk None identified. Assessment: 00:22 GI: Bowel sounds diminished in right lower quadrant and left lower quadrant. ke1 00:22 GI: Abd is soft Abdomen is tender to palpation in right lower quadrant and left lower ke1 quadrant. Vital Signs: 03/30 23:55 BP 147 / 111; Pulse 68; Resp 18; Temp 98.5; Pulse Ox 100% ; Weight 55.79 kg; Height 5 kb3 ft. 3 in. (160.02 cm); Pain 03/12; 03/31 02:46 BP 139 / 89; Pulse 67; Resp 19; Temp 98.4; Pulse Ox 100% on R/A; ke1 03/30 23:55 Body Mass Index 21.79 (55.79 kg, 160.02 cm) kb3 ED Course: 03/30 23:50 Patient arrived in ED. bp1 23:58 Triage completed. kb3 23:58 Arm band placed on right wrist. kb3 03/31 00:00 Arnie Resendiz MD is Attending Physician. bs3 00:03 Felix Posey, RN is Primary Nurse. ke1 00:15 Patient has correct armband on for positive identification. Placed in gown. Bed in low mm9 position. Call light in reach. Side rails up X 1. Warm blanket given. Pulse ox on. NIBP on. 00:15 UA MICROSCOPIC Sent. mm9 00:15 Urine collected: clean catch specimen, clear. mm9 00:16 Urine --Ancillary (enter results) Sent. mm9 00:21 Inserted saline lock: 20 gauge in right forearm, using aseptic technique. ke1 00:22 BMP Sent. ke1 00:22 CBC with Diff Sent. ke1 00:30 Chest Single View XRAY In Process Unspecified. EDMS 02:46 No provider procedures requiring assistance completed. IV discontinued. ke1 Administered Medications: 00:32 Not Given (Patient Refused): Ketorolac 15 mg IVP once ke1 Medication: 02:46 VIS not applicable for this client. ke1 Outcome: 02:20 Discharge ordered by MD. [email or web address] 02:46 Discharged to home ambulatory. ke1 02:46 Condition: good 02:46 Discharge instructions given to patient. 02:47 Patient left the ED. ke1 Signatures: Dispatcher [employer] EDMS Tammi Britt Kouassi, RN RN ke1 Cesia Schuster RN RN kb3 Arnie Resendiz MD MD bs3 Vanesa Andino mm9
[2022-03-31 03:06] VITALS: O2SAT 100
[2022-03-31 03:08] VITALS: BP 139/89; TEMP 98.4
== END 2022-03-31 02:47 | disposition home or self-care (01) ==
LOC: ER 23:47
DX: M54.50 Low back pain, unspecified (principal); M54.9 Dorsalgia, unspecified; I10 Essential (primary) hypertension
CPT/HCPCS: 36415; 71045; 80048; 81003; 81015; 81025; 85025; 99284